=== PATIENT | female | born 1940 | race Caucasian/White ===

== ENCOUNTER → 2021-01-22 12:18 | Outpatient (CLI) | payer MEDICARE, OTHER, SELFPAY ==
--- NOTE | 2021-01-22 12:25 | DI.RAD.S_ITS ---
PROCEDURE: XR LUMBAR SPINE MIN 4V INDICATIONS: progressive LBP TECHNIQUE: 5 views of the lumbar spine were acquired, including bilateral oblique views. COMPARISON: None. FINDINGS: Bones: 5 nonrib-bearing vertebrae are present. There is grade 1 anterolisthesis of L4 on L5. Degenerative endplate changes are noted at throughout lumbar spine more prominent at L4-5 and L5-S1 levels. No vertebral body compression fractures. No suspicious bony lesions. Soft tissues: Overlying bowel gas pattern is normal. No suspicious soft tissue calcifications. Oblique images: No pars defects. No significant bony foraminal stenosis is seen. IMPRESSION: Grade 1 anterolisthesis of L4 on L5. No compression fracture. 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 No gross pars defect or significant bony foraminal stenosis. Dictated by: Joe Disla M.D. on 01/22/2021 at 13:51 Approved by: Joe Disla M.D. on 01/22/2021 at 13:52
== END ==
PROVIDERS: PCP Nurse Practitioner Family; Referring Provider Physical Medicine & Rehabilitation; Visit Provider Physical Medicine & Rehabilitation
DX: M51.26 Other intervertebral disc displacement, lumbar region (principal); M43.16 Spondylolisthesis, lumbar region; M51.36 Other intervertebral disc degeneration, lumbar region; M47.816 Spondylosis without myelopathy or radiculopathy, lumbar region
CPT/HCPCS: 72110

== ENCOUNTER → 2021-02-22 12:57 | Outpatient (CLI) | payer MEDICARE, OTHER, SELFPAY | PROVIDERS: PCP Family Medicine; Referring Provider Physical Medicine & Rehabilitation; Visit Provider Physical Medicine & Rehabilitation | DX: M51.36 Other intervertebral disc degeneration, lumbar region (principal); Z53.20 Procedure and treatment not carried out because of patient's decision for unspecified reasons ==

== ENCOUNTER → 2021-04-02 14:37 | Outpatient (CLI) | payer MEDICARE, OTHER, SELFPAY ==
--- NOTE | 2021-04-02 14:39 | DI.CT.S_ITS ---
PROCEDURE: CT LUMBAR SPINE WO CON INDICATIONS: post lami and spinal cord stim TECHNIQUE: Noncontrast 3 mm thick sections acquired from the T12 level to the sacrum. Sagittal and coronal reformats were constructed. For radiation dose reduction, the following was used: automated exposure control. COMPARISON: [facility], CR, XR LUMBAR SPINE MIN 4V, 01/22/2021, 12:35. FINDINGS: Image quality: This examination is limited by involuntary motion artifact. Bones: No acute vertebral body compression fractures. No suspicious lytic or blastic bony lesions. No pars defects. Mild levoconvex scoliotic curvature is noted. Minimal L4-5 anterolisthesis is seen. No associated pars defects are seen.. T11-T12: Bridging anterior osteophytes are seen. No significant neural foraminal or central canal narrowing can be seen. T12-L1: The disc height is well preserved. Moderate disc bulge is seen, which is eccentric to left. There is moderate left-sided and mild right-sided facet hypertrophy seen. There is moderate to severe left-sided and no significant right-sided neural foraminal narrowing seen. No central canal narrowing is seen. L1-L2: No significant loss of disc height is seen. Moderate disc bulge is seen, which is eccentric to the left. There is a left lateral recess/foraminal disc protrusion seen. Mild facet joint hypertrophy is seen. Moderate bilateral neural foraminal narrowing is seen. Mild central canal narrowing is seen. L2-L3: Mild loss of disc height is seen. At least moderate disc bulge is seen, with a central disc protrusion. Mild facet joint hypertrophy is seen. Moderate bilateral neural foraminal narrowing is seen. Moderate central canal narrowing is seen. L3-L4: Mild loss of disc height is seen. Vacuum disc phenomenon is seen at this level. At least moderate disc bulge is seen. Moderate to prominent facet joint hypertrophy is seen. There is moderate to severe bilateral neural foraminal narrowing seen. At least moderate central canal narrowing is seen. L4-L5: The disc height is relatively well preserved. Vacuum disc phenomenon is seen at this level. Moderate to prominent disc bulge is seen, with a central disc protrusion. Prominent facet hypertrophy is seen. There is at least moderate left-sided and moderate to severe right-sided neural foraminal narrowing seen. Moderate to severe central canal narrowing is seen. L5-S1: The disc height is well preserved. Partially bridging endplate osteophytes are seen at this level. At least moderate disc bulge is seen, which is eccentric to the left. Prominent facet hypertrophy is seen at this level. There is moderate to severe bilateral neural foraminal narrowing seen. Mild central canal narrowing is seen. Soft tissues: No retroperitoneal masses or hematomas. Visualized aorta is normal in caliber. Atherosclerotic calcification is noted. Cholecystectomy clips are seen. Gastroesophageal junction postoperative change is seen. The uterus appears normal for age. No adnexal masses are seen. Left-sided sacral stimulator wires can be seen, without a power pack. IMPRESSION: Multiple levels of lumbar spine degenerative change are seen, which are worst inferiorly. Left-sided sacral stimulator wires are seen, without a power pack. Incidental note is made of: Cholecystectomy Gastroesophageal junction postoperative change Dictated by: Jhonny Rabago M.D. on 04/02/2021 at 16:12 Approved by: Jhonny Rabago M.D. on 04/02/2021 at 16:18
== END ==
PROVIDERS: PCP Family Medicine; Referring Provider Physical Medicine & Rehabilitation; Visit Provider Physical Medicine & Rehabilitation
DX: M43.16 Spondylolisthesis, lumbar region (principal); M47.816 Spondylosis without myelopathy or radiculopathy, lumbar region; M47.817 Spondylosis without myelopathy or radiculopathy, lumbosacral region; Z96.82 Presence of neurostimulator; Z90.49 Acquired absence of other specified parts of digestive tract
CPT/HCPCS: 72131

== ENCOUNTER → 2021-05-05 08:27 | Outpatient (CLI) | payer MEDICARE, OTHER, SELFPAY ==
[2021-05-05 15:10] LABS: COVID19 -Nasal RAPID Negative (Negative)
== END ==
PROVIDERS: PCP Family Medicine; Visit Provider Physical Medicine & Rehabilitation
DX: Z20.822 Contact with and (suspected) exposure to COVID-19 (principal)
CPT/HCPCS: 87635; C9803

== ENCOUNTER 2021-05-07 10:34 | Outpatient (CLI) | payer MEDICARE, OTHER, SELFPAY ==
[2021-05-07] VITALS (8 sets, daily range): BP systolic 131–180; BP diastolic 60–115; PULSE 57–64; RESP 12–22; TEMP 36.3; O2SAT 96–99
--- NOTE | 2021-05-07 10:36 | DI.RAD.S_ITS ---
PROCEDURE: PAIN L/S FACET INJ/BLK 1ST CHERYL COMPARISON: None. INDICATIONS: SPONDYLOSIS FINDINGS: Needle tip positioning is appropriate for bilateral L4, L5, S1 medial branch block procedures (6 total). IMPRESSION: Normal needle tip positioning for 6 total medial branch block procedures. Dictated by: Toro Upton M.D. on 05/07/2021 at 12:13 Approved by: Toro Upton M.D. on 05/07/2021 at 12:14
[2021-05-07] MEDS: MIDAZOLAM 5 MG/5 ML VIAL IV (11:42)
[2021-05-07] MEDS: fentaNYL 100 MCG/2 ML INJ 50 MCG IV (11:42)
[2021-05-07] MEDS: BUPIVACAINE 0.5% (PF) VIAL 5 ML INJ (11:45)
[2021-05-07] MEDS: IOPAMIDOL 15 ML VIAL 3 ML INJ (11:45)
[2021-05-07] MEDS: LIDOCAINE 1% 20 ML 10 ML INJ (11:46)
--- NOTE | 2021-05-07 12:00 | PM.PROC.IR.1 ---
Date/Time/Diagnoses Date of procedure: 05/07/21 Time of procedure: 12:00 Pre-procedure diagnosis: 1. FACET ARTHROPATHY Post-procedure diagnosis: same Procedure Notes Procedure: 1. BILATERAL- L4, L5 and S1 DIAGNOSTIC MB BLOCKS with LA Anesthetic Indications: Natalia is referred by Dr. Crowell for treatment of Bilateral Axial LBP. Physician: Erlin Manrique Total Fluoroscopy time (seconds): 16 Total sedation minutes: 11 Complications: none Procedure in detail & Post-procedure care: DESCRIPTION OF PROCEDURE Fluoroscopically guided, contrast-controlled bilateral L4, L5 and S1 medial branch blocks with 0.5cc of 0.5% Marcaine. Following review of allergy and review of potential side effects and complications, including, but not necessarily limited to, infection, allergic reaction, local tissue breakdown, nerve injury, paralysis, stroke and possible , the patient indicated that the patient understood and agreed to proceed. An informed consent document was signed by the patient, witnessed by a nurse, and placed in the patient's chart. After review of previous anaesthesic history and IV conscious sedation the patient was deemed safe to proceed with today's procedure with IV conscious sedation as ASA class II designation. Safety time-out was performed to confirm patient ID, procedure to be performed and site of procedure. IV sedation was accomplished with a combination of 3mg of Versed and 50mcg of Fentanyl was administered by the RN after DO order, titrated to patient comfort during the course of the procedure while the patient remained responsive to all verbal commands In the prone position, following sterile prep and drape of the lumbar region, the right L4, L5 and S1 anatomical location of the medial branch of the dorsal ramus was identified fluoroscopically. Subsequently an anesthetic skin wheal using 1% lidocaine solution was initiated at each of the anatomical spots. Subsequently then a 22-gauge 5-inch spinal needle was atraumatically introduced and advanced under fluoroscopic guidance at each of the corresponding sites at the right L4, L5 and S1 MB. After negative aspiration, 0.2cc of Isovue 200 was injected, confirming placement without vascular or intrathecal uptake. Subsequently then 0.5cc of 0.5% Marcaine solution was injected at each of the corresponding sites at the right L4, L5 and S1 medial branch locations. The identical procedure was replicated on the left. The patient tolerated the procedure well without signs or symptoms of complications prior to transfer to the recovery area continued monitoring without incident. Post-procedure, the patient was monitored initiating provocative activities to measure the amount of relief from block of the facetogenic pain. The patient reported a VAS of 7 prior to the procedure and a post-procedure VAS of 1. It has been a pleasure to assist in the diagnostic and therapeutic care of your patient. POST OP INSTRUCTIONS The patient was provided with a Pain Log to complete over the next several hours and subsequent days prior to the patient's follow up with the ordering physician. If the patient has hydrometeorology teacher relief to the solution applied, then they may be a candidate for medial branch rhizotomy. The patient is aware, was provided, once again, with a Pain Log and will follow up with the referring physician for review and clinical correlation
== END 2021-05-07 12:19 | disposition home or self-care (01) ==
LOC: RAD 10:35
PROVIDERS: PCP Family Medicine; Referring Provider Physical Medicine & Rehabilitation; Visit Provider Physical Medicine & Rehabilitation
DX: M47.816 Spondylosis without myelopathy or radiculopathy, lumbar region (principal); M47.817 Spondylosis without myelopathy or radiculopathy, lumbosacral region
CPT/HCPCS: 64493; 64494; 99152; J2250; J3010

== ENCOUNTER → 2021-07-06 14:18 | Outpatient (CLI) | payer MEDICARE, OTHER, SELFPAY ==
[2021-07-06 16:00] LABS: COVID19 -Nasal RAPID Negative (Negative)
== END ==
PROVIDERS: PCP Family Medicine; Referring Provider Nurse Practitioner Family; Visit Provider Nurse Practitioner Family
DX: Z01.812 Encounter for preprocedural laboratory examination (principal); Z20.822 Contact with and (suspected) exposure to COVID-19
CPT/HCPCS: 87635; C9803

== ENCOUNTER 2021-07-07 07:26 | Outpatient (CLI) | payer MEDICARE, OTHER, SELFPAY ==
[2021-07-07] VITALS (11 sets, daily range): BP systolic 109–165; BP diastolic 54–76; PULSE 58–65; RESP 14–19; TEMP 36.9; O2SAT 96–99
--- NOTE | 2021-07-07 07:35 | DI.RAD.S_ITS ---
PROCEDURE: PAIN L/S MED/LAT N RFA BILAT INDICATIONS: SPONDYLOSIS COMPARISON: [facility], , PAIN L/S FACET INJ/BLK 1ST CHERYL, 05/07/2021, 11:47. FINDINGS: Fluoroscopic spot filming was performed to verify placement of spinal needles at the bilateral L4, L5, and S1 level(s), as labeled on the films. IMPRESSION: Intraprocedural examination within normal limits. Dictated by: Jhonny Rabago M.D. on 07/07/2021 at 8:40 Approved by: Jhonny Rabago M.D. on 07/07/2021 at 8:41
[2021-07-07] MEDS: fentaNYL 100 MCG/2 ML INJ 50 MCG IV (08:21)
[2021-07-07] MEDS: MIDAZOLAM 5 MG/5 ML VIAL IV (08:28)
[2021-07-07] MEDS: BUPIVACAINE 0.5% (PF) VIAL 5 ML INJ (08:30)
[2021-07-07] MEDS: LIDOCAINE 1% 20 ML INJ (08:31)
--- NOTE | 2021-07-07 09:05 | P.PCN_ITS ---
Date/Time/Diagnoses Date of procedure: 07/07/21 Pre-procedure diagnosis: 1. RECALCITRANT FACET ARTHROPATHY Post-procedure diagnosis: same Procedure Notes Procedure: 1. BILATERAL L4 AND L5 MEDIAL BRANCH RADIOFREQUENCY NEUROTOMY AND S1 DORSAL RAMUS BRANCH RADIOFREQUENCY NEUROTOMY Indications: Natalia is referred by Dr. Crowell for treatment of facet arthropathy. Physician: Erlin Manrique Total Fluoroscopy time (seconds): 16 Total sedation minutes: 39 Complications: none Procedure in detail & Post-procedure care: DESCRIPTION OF PROCEDURE Bilateral L4 and L5 medial branch radiofrequency neurotomy and bilateral S1 dorsal ramus radiofrequency neurotomy under fluoroscopy with conscious sedation. The patient is well known to this clinic having undergone previous facet injections with good but temporary relief. The patient has experienced appropriate, concordant relief with previous facet and median branch blocks but the patient's pain has been recalcitrant to further conservative measures. Therefore, based upon the patient's relief and persistent symptoms, the patient is considered an appropriate candidate for facet rhizotomy. All of the patient's questions regarding the risks versus benefits of the procedure, including, but not limited to, bleeding, infection, temporary as well as lasting nerve injury, paralysis, stroke, and , as well treatment alternatives were answered to satisfaction. After obtaining informed consent, denial of pertinent drug allergies, as well as being made aware of the potential risks of bleeding, infection, spinal cord trauma, paralysis, temporary and permanent nerve damage, seizure, stroke, and possible , the patient was brought to the fluoroscopy suite and positioned prone on the fluoroscopy table. The lumbar region was prepped with Betadine and covered with a fenestrated drape in the usual sterile fashion. Appropriate monitors applied including pulse oximeter, pulse, and blood pressure for regular monitoring throughout the procedure. After review of previous anaesthesic history and IV conscious sedation the patient was deemed safe to proceed with today's procedure with IV conscious sedation as ASA class II designation. Safety time-out was performed to confirm patient ID, procedure to be performed and site of procedure. IV sedation was accomplished with a combination of 4mg of Versed and 50mcg of Fentanyl administered by the RN after DO order, titrated to patient comfort during the course of the procedure while the patient remained responsive to all verbal commands. After local infiltration using 1% lidocaine, under fluoroscopic guidance, a 15- cm RF insulated needle with a 10-mm active tip was positioned parallel to the junction of the right sacral ala and the superior articulating process where the S1 dorsal ramus resides. Needle placement was confirmed with motor stimulation of .5v on the right which produced local stimulation without radicular component. The stimulation was then increased to 2v with, once again, only local multifidus stimulation without radicular component. The needle was then removed and the identical procedure was performed along the length of the right L5 medial branch with motor stimulation at .7v on the right. The identical procedure was once again performed along the length of the right L4 medial branch with motor stimulation of .5v on the right. The medial branches were then anesthetised with 0.5% Marcaine. This was then followed by two discreet lesions performed at 80 degrees Celsius for 90 seconds each. The identical procedure was repeated on the left. The patient tolerated the procedure well without signs or symptoms of complications prior to transfer to the recovery area continued monitoring without incident. The patient was then transferred to the recovery area where they were observed for an appropriate period of time after the injection. The patient reported a VAS score of 9 prior to the procedure and a post-procedure VAS of 0. POST OP INSTRUCTIONS The patient was provided a Pain Log to continue to record the patient's response to the target-specific procedure prior to the patient's follow-up visit with the referring physician. Additionally, specific post-injection care instructions and a contact number to our office were provided if concerns arise regarding possible complications associated with the procedure are suspected.
== END 2021-07-07 09:20 | disposition home or self-care (01) ==
LOC: RAD 07:27
PROVIDERS: PCP Family Medicine; Referring Provider Physical Medicine & Rehabilitation; Visit Provider Physical Medicine & Rehabilitation
DX: M47.816 Spondylosis without myelopathy or radiculopathy, lumbar region (principal); M47.817 Spondylosis without myelopathy or radiculopathy, lumbosacral region
CPT/HCPCS: 64635; 64636; 99152; 99153; J2250; J3010

== ENCOUNTER → 2022-02-05 11:24 | Outpatient (CLI) | payer MEDICARE, OTHER, SELFPAY ==
--- NOTE | 2022-02-05 11:28 | DI.RAD.S_ITS ---
PROCEDURE: XR KNEE RT 3V INDICATIONS: RIGHT KNEE PAIN TECHNIQUE: 3 views of the knee were acquired. COMPARISON: None. FINDINGS: Bones: No fractures or dislocations. Mild to moderate degeneration of the medial compartment with joint space loss and osteophytosis. The lateral and patellofemoral compartment joint spaces are maintained. Small superior patellar enthesophyte. Soft tissues: No joint effusion. No suspicious soft tissue calcifications. IMPRESSION: [id number] medial compartment osteoarthrosis. Dictated by: Willian Royal M.D. on 02/05/2022 at 13:44 Approved by: Willian Royal M.D. on 02/05/2022 at 13:46
== END ==
PROVIDERS: PCP Family Medicine; Referring Provider Physical Medicine & Rehabilitation; Visit Provider Physical Medicine & Rehabilitation
DX: M17.11 Unilateral primary osteoarthritis, right knee (principal); M25.561 Pain in right knee
CPT/HCPCS: 73562

== ENCOUNTER → 2022-02-15 12:36 | Outpatient (CLI) | payer MEDICARE, OTHER, SELFPAY ==
--- NOTE | 2022-02-15 13:00 | DI.CT.S_ITS ---
PROCEDURE: CT CERVICAL SPINE WO CON INDICATIONS: CERVICAL RADICULOPATHY TECHNIQUE: Noncontrast 3 mm thick sections acquired from the skull base to the T4 level. Sagittal and coronal reformats were then constructed. For radiation dose reduction, the following was used: automated exposure control, adjustment of mA and/or kV according to patient size. COMPARISON: [facility], RG, XR C-SPINE 2-3V, 10/14/2021, 12:03. FINDINGS: Image quality: This examination is somewhat limited by quantum mottle artifact. Bones: No fractures or dislocations. Visualized superior ribs are intact. There is moderate disc space narrowing at C4-C5, with moderate to severe disc space narrowing at C5-C6 and C6-C7. Posteriorly directed endplate osteophytes are seen, which are worst at C6-C7. Partially bridging anterior osteophytes are seen C4 through C7. Focal degenerative change is seen involving the C1-C2 interface anteriorly. Soft tissues: Prevertebral soft tissues are normal in thickness. No paravertebral hematomas. No apical pneumothoraces. Postoperative clips from thyroidectomy can be seen. IMPRESSION: Cervical spine degenerative changes are seen, which are worst at the C6-C7 level. Dictated by: Jhonny Rabago M.D. on 02/15/2022 at 12:21 Approved by: Jhonny Rabago M.D. on 02/15/2022 at 12:22
== END ==
PROVIDERS: PCP Family Medicine; Referring Provider Physical Medicine & Rehabilitation; Visit Provider Physical Medicine & Rehabilitation
DX: M47.22 Other spondylosis with radiculopathy, cervical region
CPT/HCPCS: 72125

== ENCOUNTER 2022-02-23 17:34 | Emergency (ER) | payer MEDICARE, OTHER, SELFPAY ==
[2022-02-23 17:41] VITALS: BP 190/91; PULSE 76; RESP 22; TEMP 37.2; O2SAT 100
--- NOTE | 2022-02-23 18:02 | ED_ITS ---
HPI - Extremity Problem <Erica Bear PA-C - Last Filed: 02/23/22 20:21> General Chief complaint: Extremity Problem,Nontraumatic Stated complaint: rt knee pain - no known injury Time Seen by Provider: 02/23/22 17:40 Source: patient Mode of arrival: Wheelchair History of Present Illness HPI Narrative: 82-year-old female with past medical history pulmonary embolism, herniated lumbar discs, spun the low listhesis, right knee DJD presents to the ED with 1 day of severe right knee pain. Patient states she has been seeing Pain Management and gotten an injection for the knee 2 weeks ago, following which the medial aspect of her knee feels progressively more painful. Patient states that she felt her right knee give out due to extreme pain earlier today, which brought her to the ED. patient denies numbness, tingling, weakness patient states she has been unable to bear weight and walk on that knee since this mo rning. Patient denies any specific trauma that led to the knee pain. Patient denies fever, chills, chest pain, shortness of breath, cough. Patient has a history of PE, for which she takes warfarin. Patient denies missing any doses recently. Related Data Home Medications Medication Instructions Recorded Confirmed amlodipine 5 mg tablet 5 mg PO DAILY 02/11/21 07/23/21 aspirin 81 mg tablet,delayed 81 mg PO DAILY 02/11/21 07/23/21 release (Adult Low Dose Aspirin) atenolol 50 mg tablet 50 mg PO DAILY 02/11/21 07/23/21 atorvastatin 40 mg tablet 40 mg PO BEDTIME 02/11/21 07/23/21 calcium carbonate 500 mg calcium 1,000 mg PO DAILY 02/11/21 07/23/21 (1,250 mg) tablet (Calcium 500) cetirizine 10 mg tablet 10 mg PO DAILY PRN 02/11/21 07/23/21 levothyroxine 125 mcg capsule 125 mcg PO DAILY 02/11/21 07/23/21 melatonin 10 mg capsule 10 mg PO BEDTIME PRN 02/11/21 07/23/21 metoclopramide HCl 10 mg tablet 10 mg PO Q6H PRN 02/11/21 07/23/21 (Reglan) omega-3 fatty acids 1,000 mg 2,000 mg PO DAILY 02/11/21 07/23/21 capsule (Fish Oil Concentrate) spironolactone 25 mg tablet 25 mg PO DAILY 02/11/21 07/23/21 (Aldactone) temazepam 30 mg capsule 30 mg PO BEDTIME PRN 02/11/21 07/23/21 vitamin B complex (B 1 tab PO DAILY 02/11/21 07/23/21 Complex-Vitamin B12) warfarin 6 mg tablet 6 mg PO 6XW 02/11/21 07/23/21 acetaminophen 500 mg tablet 1,000 mg PO Q6H PRN 07/01/21 07/23/21 (Tylenol Extra Strength) Allergies Allergy/AdvReac Type Severity Reaction Status Date / Time adhesive tape Allergy Intermediate Rash Verified 02/08/22 11:08 penicillin G Allergy Intermediate Rash Verified 02/08/22 11:08 Sulfa (Sulfonamide Allergy Intermediate Rash Verified 02/08/22 11:08 Antibiotics) Review of Systems <Erica Bera PA-C - Last Filed: 02/23/22 20:21> Review of Systems ROS Unobtainable: All systems reviewed & are unremarkable except as noted in HPI and below Constitutional Constitutional: Denies chills, Denies fatigue, Denies fever(s), Denies frequent falls, Denies lethargy and Denies weakness Eyes Eyes: Denies change in vision, Denies eye discharge, Denies irritation and Denies loss of vision ENT Ears, Nose, Mouth, and Throat: Denies change in voice, Denies dizziness, Denies neck pain, Denies sore throat and Denies throat swelling Cardiovascular Cardiovascular: Denies chest pain, Denies irregular heart rhythm, Denies lightheadedness, Denies palpitations, Denies dyspnea, Denies dyspnea on exertion and Denies orthopnea Respiratory Respiratory: Denies cough, Denies dyspnea, Denies dyspnea on exertion and Denies wheezing Gastrointestinal Gastrointestinal: Denies abdominal pain, Denies change in bowel habits, Denies diarrhea, Denies nausea and Denies vomiting Genitourinary Genitourinary: Denies hematuria, Denies flank pain, Denies urinary incontinence and Denies urinary urgency Musculoskeletal Musculoskeletal: Denies back pain, Denies muscle weakness, Denies neck pain, Denies numbness and Denies tingling Integumentary/Breasts Skin/Breast: Denies pruritus, Denies erythema, Denies rash and Denies wounds Comments: Right knee pain. Neurologic Neurologic: Denies behavioral changes, Denies confusion, Denies dizziness, Denies frequent falls, Denies loss of vision, Denies numbness, Denies tingling and Denies weakness Psychiatric Psychiatric: Denies anxiety, Denies behavioral changes, Denies confusion, Denies depression, Denies homicidal ideation and Denies suicidal ideation Endocrine Endocrine: Denies fatigue, Denies flushing and Denies palpitations Hematologic/Lymphatic Hematologic/Lymphatic: Denies easy bruising Allergic/Immunologic Allergic/Immunologic: Denies urticaria, Denies throat swelling and Denies wheezing Patient History <Erica Bear PA-C - Last Filed: 02/23/22 20:21> Medical History Cervical radiculopathy Degenerative joint disease of right hip Facet arthropathy, lumbar Herniated nucleus pulposus, lumbar History of pulmonary embolus (PE) Right knee DJD Spondylolisthesis at L4-L5 level Surgical History H/O thyroidectomy History of left knee replacement Hx laparoscopic cholecystectomy Family History Father Heart attack Social History Smoking Status: Former smoker Smoking Status: Former smoker Exam <Erica Bear PA-C - Last Filed: 02/23/22 20:21> Initial Vital Signs Initial Vital Signs: Vital Signs Temperature 98.9 F 02/23/22 17:41 Pulse Rate 76 02/23/22 17:41 Respiratory Rate 22 02/23/22 17:41 Blood Pressure 190/91 H 02/23/22 17:41 Pulse Oximetry 100 02/23/22 17:41 Const General: cooperative, healthy appearing and comfortable [facility] Head: normal to inspection Eyes General: Yes appearance normal, both eyes and all related structures Neck Neck: normal visual inspection Resp Effort & Inspection: normal respiratory effort Auscultation: clear to auscultation bilaterally Cardio Rate: regular rate Rhythm: regular rhythm Skin General: no rashes or lesions noted Neuro General: patient alert, patient awake and patient oriented x3 Extrem Other: Right knee/leg does not appear to be swollen, erythematous. Not tender to palpation. Patient endorses pain when she tries to flex the knee, bear weight or walk. Strength and sensation intact. Range of motion intact. Neurovascularly intact. Psych Appearance: grossly normal Mental Status: mental status grossly normal <Sky Mary DO - Last Filed: 02/26/22 00:50> Initial Vital Signs Initial Vital Signs: Vital Signs Temperature 98.9 F 02/23/22 17:41 Pulse Rate 76 02/23/22 17:41 Respiratory Rate 22 02/23/22 17:41 Blood Pressure 190/91 H 02/23/22 17:41 Pulse Oximetry 100 02/23/22 17:41 Course <Erica Bear PA-C - Last Filed: 02/23/22 20:21> Orders Ordered: Discontinued Medications Lidocaine (Lidocaine Patch 1 Each Adh..Patch) 1 each TOP NOW ONE Stop: 02/23/22 18:25 Last Admin: 02/23/22 18:35 Dose: 1 each Documented by: NRHOVELVET Oxycodone/Acetaminophen (Oxycodone/Acetaminophen 5/325 Tablet) 1 tab PO NOW ONE Stop: 02/23/22 20:16 Last Admin: 02/23/22 20:34 Dose: 1 tab Documented by: NRHOADS Oxycodone/Acetaminophen (Oxycodone/Apap 5/325 Prepack) 1 bottle MISC SEEINSTR ONE Stop: 02/23/22 20:20 Oxycodone/Acetaminophen (Oxycodone/Apap 5/325 Prepack) 1 bottle MISC SEEINSTR ONE Stop: 02/23/22 20:46 Last Admin: 02/23/22 20:41 Dose: 1 bottle Documented by: NRHOVELVET Vital Signs Vital signs: Vital Signs - 8 hr 02/23/22 17:41 Temperature 98.9 F Pulse Rate 76 Respiratory Rate 22 Blood Pressure 190/91 H Pulse Oximetry 100 <Sky Mary DO - Last Filed: 02/26/22 00:50> Orders Ordered: Discontinued Medications Lidocaine (Lidocaine Patch 1 Each Adh..Patch) 1 each TOP NOW ONE Stop: 02/23/22 18:25 Last Admin: 02/23/22 18:35 Dose: 1 each Documented by: NRHOVELVET Oxycodone/Acetaminophen (Oxycodone/Acetaminophen 5/325 Tablet) 1 tab PO NOW ONE Stop: 02/23/22 20:16 Last Admin: 02/23/22 20:34 Dose: 1 tab Documented by: IWONA Oxycodone/Acetaminophen (Oxycodone/Apap 5/325 Prepack) 1 bottle MISC SEEINSTR ONE Stop: 02/23/22 20:20 Oxycodone/Acetaminophen (Oxycodone/Apap 5/325 Prepack) 1 bottle MISC SEEINSTR ONE Stop: 02/23/22 20:46 Last Admin: 02/23/22 20:41 Dose: 1 bottle Documented by: IWONA Vital Signs Vital signs: Vital Signs - 8 hr 02/23/22 17:41 Temperature 98.9 F Pulse Rate 76 Respiratory Rate 22 Blood Pressure 190/91 H Pulse Oximetry 100 MDM - Extremity (Nontraumatic) <Erica Bear PA-C - Last Filed: 02/23/22 20:21> Lab Data Result diagrams: 02/23/22 19:40 02/23/22 19:40 Labs: Lab Results 02/23/22 02/23/22 02/23/22 Range/Units 19:40 19:40 19:40 WBC 8.8 (4.5-11.0) X10^3/uL RBC 5.04 (4.0-5.2) X10^6/uL Hgb 15.0 (12.0-16.0) g/dL Hct 44.5 (36-46) % MCV 88.5 (80-100) fL MCH 29.9 (26-34) PG MCHC 33.8 (30-36) % RDW 14.1 (11.6-14.8) % Plt Count 229 (150-400) X10^3/uL Neut % (Auto) 66.2 (50-75) % Lymph % (Auto) 24.4 L (25-40) % Cedar % (Auto) 7.4 (3-14) % Eos % (Auto) 1.2 L (2-4) % Baso % (Auto) 0.8 (0-2) % Neut # (Auto) 5800 (7543-3375) /uL Lymph # (Auto) 2100 (4040-7221) /uL Cedar # (Auto) 700 (0-900) /uL Eos # (Auto) 100 (0-450) /uL Baso # (Auto) 100 (0-100) /uL PT 28.2 H (10.1-12.7) SECONDS INR 2.5 H (0.9-1.3) APTT 46 H (26.4-36.2) SECONDS Sodium 142 (137-145) mmol/L Potassium 4.6 (3.4-5.1) mmol/L Chloride 106 (98-107) mmol/L Carbon Dioxide 28 (22-32) mmol/L BUN 24 H (7-17) mg/dL Creatinine 1.03 (0.52-1.04) mg/dL Estimated GFR 55 L (>60) mL/min BUN/Creatinine Ratio 23.3 H (6-22) Glucose 111 H (80-110) mg/dL Calcium 9.8 (8.4-10.2) mg/dL Total Bilirubin 0.9 (0.2-1.3) mg/dL AST 43 H (14-36) IU/L ALT 36 H (<35) IU/L Alkaline Phosphatase 103 (38-126) U/L Total Protein 8.1 (6.3-8.2) g/dL Albumin 4.6 (3.5-5.0) g/dL Globulin 3.5 (1.7-4.1) g/dL Albumin/Globulin Ratio 1.3 (1.0-2.8) Imaging Data Knee x-ray: Radiologist's Impression: PROCEDURE:? XR KNEE RT 3V ? INDICATIONS:? R Knee pain ? TECHNIQUE:? 3 views of the knee were acquired.? ? COMPARISON:? [facility], , XR KNEE RT 3V, 02/05/2022, 11:24. ? FINDINGS:? ? Bones:? No fractures or dislocations.? No suspicious bony lesions.? There is moderate to severe medial patellofemoral compartment narrowing.? Small periarticular osteophytes are present.? No erosions.? Overall appearance is stable. ? Soft tissues:? No joint effusion.? No suspicious soft tissue calcifications.? ? ? IMPRESSION:? Stable arthritic change. No visualized acute fracture or disloca tion. However, if clinical concern and/or pain persist, short interval imaging followup in 7-10 days is recommended, as occult injury cannot be definitively excluded. ? ? Dictated by: Angi Wright M.D. on 02/23/2022 at 18:39 ?? US - DVT: Radiologist's Impression: PROCEDURE:? US PERIPH VENOUS LOW EXTREM RT ? INDICATIONS:? LEG PAIN; HX DVT ? TECHNIQUE:? Real-time imaging, as well as color and pulse Doppler interrogation, were perfor med of the lower extremity deep veins from the inguinal ligament to the popliteal fossa.? ? COMPARISON:? None. ? FINDINGS:? The common femoral, femoral and popliteal veins are normally compressible, and free of intraluminal thrombus.? Color and pulse Doppler demonstrate normal phasic intraluminal flow.? There is normal augmentation response to distal compression maneuver. ? ? IMPRESSION:? No deep venous thrombosis. ? ? Dictated by: Angi Wright M.D. on 02/23/2022 at 19:38 ? ? Approved by: Angi Wright M.D. on 02/23/2022 at 19:38 ? MDM Narrative Medical decision making narrative: 82-year-old female with past medical history pulmonary embolism, herniated lumbar discs, spun the low listhesis, right knee DJD presents to the ED with 1 day of severe right knee pain. Concern for fracture/dislocation versus DVT versus musculoskeletal sprain/strain. Will obtain labs, knee x-ray, right lower extremity ultrasound. Will re-evaluate. X-ray, ultrasound without acute findings. Patient's symptoms did not improve significantly with the lidocaine patch. Will give percocet. Will discharge home with Ortho follow-up. ED return precautions discussed with patient. Patient verbalized understanding. <Sky Mary, - Last Filed: 02/26/22 00:50> Lab Data Labs: Lab Results 02/23/22 02/23/22 02/23/22 Range/Units 19:40 19:40 19:40 WBC 8.8 (4.5-11.0) X10^3/uL RBC 5.04 (4.0-5.2) X10^6/uL Hgb 15.0 (12.0-16.0) g/dL Hct 44.5 (36-46) % MCV 88.5 (80-100) fL MCH 29.9 (26-34) PG MCHC 33.8 (30-36) % RDW 14.1 (11.6-14.8) % Plt Count 229 (150-400) X10^3/uL Neut % (Auto) 66.2 (50-75) % Lymph % (Auto) 24.4 L (25-40) % Cedar % (Auto) 7.4 (3-14) % Eos % (Auto) 1.2 L (2-4) % Baso % (Auto) 0.8 (0-2) % Neut # (Auto) 5800 (9571-2497) /uL Lymph # (Auto) 2100 (8745-1127) /uL Cedar # (Auto) 700 (0-900) /uL Eos # (Auto) 100 (0-450) /uL Baso # (Auto) 100 (0-100) /uL PT 28.2 H (10.1-12.7) SECONDS INR 2.5 H (0.9-1.3) APTT 46 H (26.4-36.2) SECONDS Sodium 142 (137-145) mmol/L Potassium 4.6 (3.4-5.1) mmol/L Chloride 106 (98-107) mmol/L Carbon Dioxide 28 (22-32) mmol/L BUN 24 H (7-17) mg/dL Creatinine 1.03 (0.52-1.04) mg/dL Estimated GFR 55 L (>60) mL/min BUN/Creatinine Ratio 23.3 H (6-22) Glucose 111 H (80-110) mg/dL Calcium 9.8 (8.4-10.2) mg/dL Total Bilirubin 0.9 (0.2-1.3) mg/dL AST 43 H (14-36) IU/L ALT 36 H (<35) IU/L Alkaline Phosphatase 103 (38-126) U/L Total Protein 8.1 (6.3-8.2) g/dL Albumin 4.6 (3.5-5.0) g/dL Globulin 3.5 (1.7-4.1) g/dL Albumin/Globulin Ratio 1.3 (1.0-2.8) Discharge Plan Departure Patient Disposition: Home Clinical Impression: Knee pain Instructions: DI for Knee Pain Activity Restrictions/Additional Instructions: You were evaluated in the ED today for knee pain. Your ultrasound showed no evidence of a DVT. Your x-ray did not show any evidence of a fracture or dislocation. Your symptoms are likely due to a musculoskeletal sprain/strain or aggravation of arthritis. Please follow-up with Dr. Manrique for pain management. You can also follow-up with [facility] at [phone]. Return to the ED if your symptoms worsen, you experience numbness, tingling, weakness, fever, chills, shortness of breath. Prescriptions: No Action spironolactone [Aldactone] 25 mg tablet 25 mg PO DAILY 0RF amlodipine 5 mg tablet 5 mg PO DAILY 0RF atenolol 50 mg tablet 50 mg PO DAILY 0RF atorvastatin 40 mg tablet 40 mg PO BEDTIME 0RF cetirizine 10 mg tablet 10 mg PO DAILY PRN0RF levothyroxine 125 mcg capsule 125 mcg PO DAILY 0RF metoclopramide HCl [Reglan] 10 mg tablet 10 mg PO Q6H PRN0RF temazepam 30 mg capsule 30 mg PO BEDTIME PRN0RF warfarin 6 mg tablet 6 mg PO 6XW 0RF calcium carbonate [Calcium 500] 500 mg calcium (1,250 mg) tablet 1,000 mg PO DAILY 0RF aspirin [Adult Low Dose Aspirin] 81 mg tablet,delayed release (DR/EC) 81 mg PO DAILY 0RF omega-3 fatty acids [Fish Oil Concentrate] 1,000 mg capsule 2,000 mg PO DAILY 0RF melatonin 10 mg capsule 10 mg PO BEDTIME PRN0RF vitamin B complex [B Complex-Vitamin B12] Tablet 1 tab PO DAILY 0RF acetaminophen [Tylenol Extra Strength] 500 mg tablet 1,000 mg PO Q6H PRN0RF Referrals: Kemar Crowell DO [Primary Care Provider] - <Sky Mary DO - Last Filed: 02/26/22 00:50> [facility] Jesse Attestation: I was immediately available in the department for consultation. Documentation has been reviewed. I agree with assessment and plan.
--- NOTE | 2022-02-23 18:20 | DI.US.S_ITS ---
PROCEDURE: US PERIPH VENOUS LOW EXTREM RT INDICATIONS: LEG PAIN; HX DVT TECHNIQUE: Real-time imaging, as well as color and pulse Doppler interrogation, were performed of the lower extremity deep veins from the inguinal ligament to the popliteal fossa. COMPARISON: None. FINDINGS: The common femoral, femoral and popliteal veins are normally compressible, and free of intraluminal thrombus. Color and pulse Doppler demonstrate normal phasic intraluminal flow. There is normal augmentation response to distal compression maneuver. IMPRESSION: No deep venous thrombosis. Dictated by: Angi Wright M.D. on 02/23/2022 at 19:38 Approved by: Angi Wright M.D. on 02/23/2022 at 19:38
--- NOTE | 2022-02-23 18:21 | DI.RAD.S_ITS ---
PROCEDURE: XR KNEE RT 3V INDICATIONS: R Knee pain TECHNIQUE: 3 views of the knee were acquired. COMPARISON: [facility], , XR KNEE RT 3V, 02/05/2022, 11:24. FINDINGS: Bones: No fractures or dislocations. No suspicious bony lesions. There is moderate to severe medial patellofemoral compartment narrowing. Small periarticular osteophytes are present. No erosions. Overall appearance is stable. Soft tissues: No joint effusion. No suspicious soft tissue calcifications. IMPRESSION: Stable arthritic change. No visualized acute fracture or dislocation. However, if clinical concern and/or pain persist, short interval imaging followup in 7-10 days is recommended, as occult injury cannot be definitively excluded. Dictated by: Angi Wright M.D. on 02/23/2022 at 18:39 Approved by: Angi Wright M.D. on 02/23/2022 at 18:39
[2022-02-23] MEDS: LIDOCAINE PATCH 1 EACH ADH..PATCH TOP (18:35)
[2022-02-23 19:51] LABS: Add Manual Diff / Slide Review NO; Basophils Absolute Auto 100 /uL (0-100); Basophils Percent Auto 0.8 % (0-2); Eosinophils Absolute Auto 100 /uL (0-450); Eosinophils Percent Auto 1.2 % (2-4); Hematocrit 44.5 % (36-46); Lymphocytes Absolute Auto 2100 /uL (1100-4500); Lymphocytes Percent Auto 24.4 % (25-40); Mean Corpuscular HGB Conc 33.8 % (30-36); Mean Corpuscular Hemoglobin 29.9 PG (26-34); Mean Corpuscular Volume 88.5 fL (80-100); Monocytes Absolute Auto 700 /uL (0-900); Monocytes Percent Auto 7.4 % (3-14); Neutrophils Absolute Auto 5800 /uL (1500-7000); Neutrophils Percent Auto 66.2 % (50-75); Platelet Count 229 X10^3/uL (150-400); Red Blood Cell Count 5.04 X10^6/uL (4.0-5.2); Red Cell Distribution Width 14.1 % (11.6-14.8); White Blood Cell Count 8.8 X10^3/uL (4.5-11.0)
[2022-02-23 20:04] LABS: Alanine Aminotransferase 36 IU/L (<35); Albumin 4.6 g/dL (3.5-5.0); Albumin Globulin Ratio 1.3 (1.0-2.8); Alkaline Phosphatase 103 U/L (38-126); Aspartate Aminotransferase 43 IU/L (14-36); BUN Creatinine Ratio 23.3 (6-22); Bilirubin Total 0.9 mg/dL (0.2-1.3); Blood Urea Nitrogen 24 mg/dL (7-17); Calcium 9.8 mg/dL (8.4-10.2); Carbon Dioxide 28 mmol/L (22-32); Chloride 106 mmol/L (98-107); Estimated Glomerular Filt Rate 55 mL/min (>60); Globulin 3.5 g/dL (1.7-4.1); Glucose 111 mg/dL (80-110); HEMOLYSIS 23 (0-50); Potassium 4.6 mmol/L (3.4-5.1); Sodium 142 mmol/L (137-145); Total Protein 8.1 g/dL (6.3-8.2)
[2022-02-23 20:05] LABS: INR 2.5 (0.9-1.3); Prothrombin Time 28.2 SECONDS (10.1-12.7)
[2022-02-23 20:07] LABS: PTT Partial Thromboplastin Tim 46 SECONDS (26.4-36.2)
[2022-02-23] MEDS: OXYCODONE/ACETAMINOPHEN 5/325 TABLET 1 TAB PO (20:34)
[2022-02-23] MEDS: OXYCODONE/APAP 5/325 PREPACK 1 BOTTLE MISC (20:41)
[2022-02-23 20:58] VITALS: BP 159/74; PULSE 71; RESP 22; O2SAT 97
== END 2022-02-23 21:09 | disposition home or self-care (01) ==
PROVIDERS: Emergency Provider Student in an Organized Health Care Education/Training Program; PCP Family Medicine
DX: M25.561 Pain in right knee (principal); Z87.891 Personal history of nicotine dependence
CPT/HCPCS: 36415; 73562; 80053; 85025; 85610; 85730; 93971; 99284

== ENCOUNTER → 2022-05-13 10:37 | Outpatient (CLI) | payer MEDICARE, OTHER, SELFPAY ==
--- NOTE | 2022-05-13 | DI.NM.S_ITS ---
PROCEDURE: NM NICK PERF SPECT R&S PHARM Rest and pharmacological stress myocardial perfusion SPECT with gated imaging and ejection fraction RADIOPHARMACEUTICAL: 25.8 mCi Tc-99m tetrafosmin IV at rest and 25.8 mCi Tc-99m tetrafosmin IV at peak effect of pharmacological stress. [id number] was performed. INDICATIONS: Presence of coronary angioplasty implant and graft TECHNIQUE: Radiopharmaceutical was injected at peak stress test, and also at rest. SPECT images were obtained. SPECT myocardial perfusion images were displayed in short axis, horizontal long axis, and vertical long axis views. Gated images were reviewed using [employer] software. COMPARISON: None. CARDIAC STRESS: A pharmacologic stress test was performed under the supervision of an attending staff, using an infusion of lexiscan 0.4mg IV X1. Hemodynamic data: There is normal blood pressure and heart rate response to pharmacologic stress. Symptoms: The patient had non-diagnostic chest pain with lexiscan Aminophylline: none EKG: No diagnostic changes of ischemia; occasional PVCs during the study. FINDINGS: Raw data: There is good myocardial uptake of radiotracer. No significant motion artifacts. Bxxk-tx-cryrh ratio is 0.37 (normal is less than 0.38 for tetrafosmin tracer). Left ventricle function: Gated images demonstrate normal left ventricular wall thickening. No segmental wall motion abnormalities. No transient ischemic dilation; TID is 0.78 (normal less than 1.3). Left ventricle resting end diastolic volume is 90 mL. Left ventricle stress ejection fraction is 89%; normal range is above 45%. Myocardial perfusion: There is normal distribution of activity in the right and left ventricular myocardium. No fixed or reversible perfusion defects. IMPRESSION: Low risk, normal pharmaceutical nuclear stress test 1) No perfusion evidence of ischemia or infarction. 2) Normal left ventricular size, wall motion, and systolic function (EF post stress 89%). 3) No ST changes with lexiscan. 4) Non diagnostic chest pain during the study. 5) No prior nuclear stress test available for comparison. Dictated by: Olivia Morel MD on 05/14/2022 at 14:57 Approved by: Olivia Morel MD on 05/14/2022 at 15:00
[2022-05-13 11:39] LABS: COVID19 -Nasal RAPID Negative (Negative)
== END ==
PROVIDERS: PCP Family Medicine; Referring Provider Internal Medicine Cardiovascular Disease; Visit Provider Internal Medicine Cardiovascular Disease
DX: Z95.5 Presence of coronary angioplasty implant and graft (principal); R07.89 Other chest pain; Z20.822 Contact with and (suspected) exposure to COVID-19
CPT/HCPCS: 78452; 87635; 93017; A9502; J2785

== ENCOUNTER → 2023-01-03 14:01 | Outpatient (CLI) | payer MEDICARE, OTHER, SELFPAY ==
--- NOTE | 2023-01-03 | DI.CT.S_ITS ---
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 Sagittal and coronal reformats were constructed. For radiation dose reduction, the following was used: automated exposure control. COMPARISON: [facility], CT, CT LUMBAR SPINE WO CON, 04/02/2021, 14:45. FINDINGS: Image quality: Excellent. Bones: There no visualized fractures or dislocations. No suspicious osseous lesions. Multilevel anterior non bridging osteophytes are present. Multilevel overall moderate to severe disc space narrowing most significant at L3-4 and L5-S1 with vacuum disc at L4-5. [id number] disc bulges are present at T12-L1, L1-, L2-3, L3-4, L4-5 and L5-S1. Superimposed left lateral recess/foraminal protrusion appears relatively unchanged at L1-2, posterior central protrusion at L2-3 as well as L4-5 are also stable. There is mild spinal stenosis L1-2, moderate L2-3. There is moderate bilateral foraminal narrowing at L1-2, L2-3, moderate to severe bilateral L3-4, L5-S1, moderate left and moderate to severe right L4-5. Facet and ligamentum flavum hypertrophy. Soft tissues: No retroperitoneal masses or hematomas. Visualized aorta is normal in caliber. IMPRESSION: Multilevel spinal stenosis predominantly secondary to disc bulges as well as facet/ligamentum flavum arthropathy is stable most severe at L2-3. Multilevel foraminal narrowing most severe at L3-4 and L5-S1 secondary to facet arthropathy. Dictated by: Angi Wright M.D. on 01/04/2023 at 11:30 Approved by: Angi Wright M.D. on 01/04/2023 at 13:28
== END ==
PROVIDERS: PCP Family Medicine; Referring Provider Orthopaedic Surgery; Visit Provider Orthopaedic Surgery
DX: M99.43 Connective tissue stenosis of neural canal of lumbar region (principal); M51.36 Other intervertebral disc degeneration, lumbar region; M48.061 Spinal stenosis, lumbar region without neurogenic claudication; M48.07 Spinal stenosis, lumbosacral region; M47.816 Spondylosis without myelopathy or radiculopathy, lumbar region; M47.817 Spondylosis without myelopathy or radiculopathy, lumbosacral region
CPT/HCPCS: 72131

== ENCOUNTER → 2023-04-13 12:14 | Outpatient (CLI) | payer MEDICARE, OTHER, SELFPAY ==
--- NOTE | 2023-04-13 12:15 | DI.RAD.S_ITS ---
PROCEDURE: XR LUMBAR SPINE MIN 4V INDICATIONS: BACK PAIN TECHNIQUE: 5 views of the lumbar spine were acquired, including bilateral oblique views. COMPARISON: [facility], , XR LUMBAR SPINE MIN 4V, 01/22/2021, 12:35. FINDINGS: Bones: 5 nonrib-bearing vertebrae are present. Stable grade 1 anterolisthesis of L4 on L5. Moderate disc height loss at all levels. Diffuse facet arthrosis. Stable left-sided nerve stimulator cord without generator. Soft tissues: Overlying bowel gas pattern is normal. No suspicious soft tissue calcifications. Oblique images: No pars defects. IMPRESSION: Progressed, moderate multilevel degenerative disc disease and facet arthrosis. Dictated by: Terry Lubin M.D. on 04/13/2023 at 13:09 Approved by: Terry Lubin M.D. on 04/13/2023 at 13:11
== END ==
PROVIDERS: PCP Family Medicine; Referring Provider Physical Medicine & Rehabilitation; Visit Provider Physical Medicine & Rehabilitation
DX: M51.36 Other intervertebral disc degeneration, lumbar region (principal); M47.816 Spondylosis without myelopathy or radiculopathy, lumbar region; M43.16 Spondylolisthesis, lumbar region; M51.26 Other intervertebral disc displacement, lumbar region
CPT/HCPCS: 72110

== ENCOUNTER 2023-04-26 07:30 | Outpatient (CLI) | payer MEDICARE, OTHER, SELFPAY ==
[2023-04-26] VITALS (9 sets, daily range): BP systolic 109–145; BP diastolic 56–74; PULSE 57–61; RESP 13–20; TEMP 36.7; O2SAT 96–99
--- NOTE | 2023-04-26 07:31 | DI.RAD.S_ITS ---
PROCEDURE: PAIN L/S FACET INJ/BLK 1ST CHERYL COMPARISON: [facility], XA, PAIN L/S FACET INJ/BLK 1ST CHERYL, 05/07/2021, 11:47. INDICATIONS: SPONDYLOSIS FINDINGS: 6 intraoperative fluoroscopic images of lumbar spine shows spinal needle placed in midline at L2-3 and L3-4 levels. Small amount of contrast injection is also noted on the subsequent images. IMPRESSION: Fluoro guidance was provided intraoperatively for bilateral L2-3 and L3-4 facet joint injections performed by the ordering physician. Dictated by: Joe Disla M.D. on 04/26/2023 at 12:16 Approved by: Joe Disla M.D. on 04/26/2023 at 12:18
[2023-04-26] MEDS: MIDAZOLAM 2 MG/2 ML VIAL 4 MG IV (08:58)
[2023-04-26] MEDS: IOPAMIDOL 15 ML VIAL 3 ML INJ (09:00)
[2023-04-26] MEDS: LIDOCAINE 1% 20 ML 5 ML INJ (09:00)
[2023-04-26] MEDS: BUPIVACAINE 0.5% (PF) 10 ML VIAL 5 ML INJ (09:00)
[2023-04-26] MEDS: BETAMETHASONE 30 MG/5 ML MDV 12 MG INJ (09:00)
--- NOTE | 2023-04-26 09:12 | P.PCN_ITS ---
Date/Time/Diagnoses Date of procedure: 04/26/23 Time of procedure: 09:13 Pre-procedure diagnosis: 1. FACET ARTHROPATHY 2. AXIAL LBP 3. MULTILEVEL DDD Post-procedure diagnosis: same Procedure Notes Procedure: 1. FLUOROSCOPICALLY GUIDED CONTRAST CONTROLLED FACET JOINT INJECTIONS BILATERAL L2/3, L3/4 Indications: Natalia is referred by Dr. Crowell for treatment of Axial LBP Physician: Erlin Manrique Total Fluoroscopy time (seconds): 14 Total sedation minutes: 16 Complications: none Procedure in detail & Post-procedure care: FINDINGS Multilevel Facet Arthropathy with Clinically significant axial LBP DESCRIPTION OF PROCEDURE Fluoroscopically guided, contrast-controlled bilateral L2/3, L3/4 facet joint injections. Following review of allergy and review of potential side effects and complications, including, but not necessarily limited to, infection, allergic reaction, local tissue breakdown, stroke, temporary or permanent nerve injury, paralysis, and possible , the patient indicated that the patient understood and agreed to proceed. An informed consent document was signed by the patient, witnessed by a nurse, and placed in the patient's chart. Additionally, other treatment options including medications, modalities, and physical therapy were reviewed with the patient. After review of previous anaesthesic history and IV conscious sedation the patient was deemed safe to proceed with today's procedure with IV conscious sedation as ASA class II designation. Safety time-out was performed to confirm patient ID, procedure to be performed and site of procedure. IV sedation was accomplished with a combination of 4mg of Versed administered by the RN after DO order, titrated to patient comfort during the course of the procedure while the patient remained responsive to all verbal commands In the prone position, following sterile prep and drape of the lumbar region, the posterior aspect of the L2/3, L3/4 facet joints were identified fluoroscopically. The skin was anesthetized via a 25-gauge 1.5-inch needle with 1% lidocaine solution into the corresponding facet joints. At this point, a 22- gauge 3.5-inch spinal needle was atraumatically introduced and advanced under fluoroscopic guidance into the corresponding facet joints. Following negative aspiration, injections of approximately 0.2cc of Isovue 200 confirmed interarticular placement without vascular uptake. The identical procedure was then performed at the L2/3, L3/4 facet joints on the left. Radiological data, including multiple fluoroscopic views of the lumbosacral spine, reveal a spinal needle at the L2/3, L3/4 facet joints bilaterally. Subsequent views show flow of contrast material both superiorly and inferiorly within the joint space without vascular or intrathecal uptake. At this point, a total of 0.5cc including a mixture of 0.25cc Marcaine and 0.25cc betamethasone was injected without complication into each of the corresponding facet joints. The patient tolerated the procedure well without signs or symptoms of complications prior to transfer to the recovery area continued monitoring without incident. The patient was then transferred to the recovery area where they were observed for an appropriate period of time after the injection. The patient reported a VAS score of 7 prior to the procedure and a post-procedure VAS of 0. POST OP INSTRUCTIONS The patient was provided a Pain Log to continue to record their response to the target-specific procedure prior to follow-up visit with their referring physician. Additionally, specific post-injection care instructions and a contact number to our office were provided if concerns arise regarding possible complications associated with the procedure are suspected.
== END 2023-04-26 09:35 | disposition home or self-care (01) ==
LOC: RAD 07:31
PROVIDERS: PCP Family Medicine; Referring Provider Physical Medicine & Rehabilitation; Visit Provider Physical Medicine & Rehabilitation
DX: M47.816 Spondylosis without myelopathy or radiculopathy, lumbar region (principal); M51.36 Other intervertebral disc degeneration, lumbar region
CPT/HCPCS: 64493; 64494; 99152; J0702; J2250

== ENCOUNTER 2023-07-12 13:12 | Outpatient (CLI) | payer MEDICARE, OTHER, SELFPAY ==
[2023-07-12] VITALS (11 sets, daily range): BP systolic 108–171; BP diastolic 50–91; PULSE 60–65; RESP 14–20; TEMP 36.1; O2SAT 60–99
--- NOTE | 2023-07-12 13:13 | DI.RAD.S_ITS ---
PROCEDURE: PAIN L/S FACET INJ/BLK 1ST CHERYL COMPARISON: [facility], XA, PAIN L/S FACET INJ/BLK 1ST CHERYL, 04/26/2023, 8:59. INDICATIONS: SPONDYLOSIS FINDINGS: Access needles at the bilateral L2, L3 and L4 pedicles. Injection of small amount of contrast material confirms positioning of the needle tips and demonstrates extra thecal location. IMPRESSION: Access needles in the bilateral L2, L3 and L4 pedicles for bilateral L2, L3 and L4 medial branch block. Dictated by: Fern Wills MD, PhD on 07/12/2023 at 15:23 Approved by: Fern Wills MD, PhD on 07/12/2023 at 15:24
[2023-07-12] MEDS: MIDAZOLAM 2 MG/2 ML VIAL IV ×2 (14:28→14:35)
[2023-07-12] MEDS: BUPIVACAINE 0.5% (PF) 10 ML VIAL 5 ML INJ (14:31)
[2023-07-12] MEDS: LIDOCAINE 1% 20 ML 5 ML INJ (14:31)
[2023-07-12] MEDS: IOPAMIDOL 15 ML VIAL 3 ML INJ (14:31)
--- NOTE | 2023-07-12 14:47 | P.PCN_ITS ---
Date/Time/Diagnoses Date of procedure: 07/12/23 Time of procedure: 14:47 Pre-procedure diagnosis: FACET ARTHROPATHY Post-procedure diagnosis: same Procedure Notes Procedure: 1. BILATERAL L2, L3, L4 DIAGNOSTIC MB BLOCKS Indications: Natalia is referred by Dr. Crowell for treatment of Bilateral Axial LBP. Physician: Erlin Manrique Total Fluoroscopy time (seconds): 11 Total sedation minutes: 13 Complications: none Procedure in detail & Post-procedure care: DESCRIPTION OF PROCEDURE Fluoroscopically guided, contrast-controlled bilateral L2, L3, L4 medial branch blocks with 0.5cc of 0.5% Marcaine. Following review of allergy and review of potential side effects and complications, including, but not necessarily limited to, infection, allergic reaction, local tissue breakdown, nerve injury, paralysis, stroke and possible , the patient indicated that the patient understood and agreed to proceed. An informed consent document was signed by the patient, witnessed by a nurse, and placed in the patient's chart. After review of previous anaesthesic history and IV conscious sedation the patient was deemed safe to proceed with today's procedure with IV conscious sedation as ASA class II designation. Safety time-out was performed to confirm patient ID, procedure to be performed and site of procedure. IV sedation was accomplished with a combination of 4mg of Versed was administered by the RN afte r DO order, titrated to patient comfort during the course of the procedure while the patient remained responsive to all verbal commands In the prone position, following sterile prep and drape of the lumbar region, the right L2, L3, L4 anatomical location of the medial branch of the dorsal ramus was identified fluoroscopically. Subsequently an anesthetic skin wheal using 1% lidocaine solution was initiated at each of the anatomical spots. Subsequently then a 22-gauge 3.5-inch spinal needle was atraumatically introduced and advanced under fluoroscopic guidance at each of the corresponding sites at the right L2, L3, L4 MB. After negative aspiration, 0.2cc of Isovue 200 was injected, confirming placement without vascular or intrathecal uptake. Subsequently then 0.5cc of 0.5% Marcaine solution was injected at each of the corresponding sites at the right L2, L3, L4 medial branch locations. The identical procedure was replicated on the left. The patient tolerated the procedure well without signs or symptoms of complications. The patient tolerated the procedure well without signs or symptoms of complications prior to transfer to the recovery area continued monitoring without incident. Post-procedure, the patient was monitored initiating provocative activities to measure the amount of relief from block of the facetogenic pain. The patient reported a VAS of 7 prior to the procedure and a post-procedure VAS of 1. It has been a pleasure to assist in the diagnostic and therapeutic care of your patient. POST OP INSTRUCTIONS The patient was provided with a Pain Log to complete over the next several hours and subsequent days prior to the patient's follow up with the ordering physician. If the patient has senior net c developer relief to the solution applied, then they may be a candidate for medial branch rhizotomy. The patient is aware, was provided, once again, with a Pain Log and will follow up with the referring physician for review and clinical correlation
== END 2023-07-12 15:09 | disposition home or self-care (01) ==
LOC: RAD 13:12
PROVIDERS: PCP Family Medicine; Referring Provider Physical Medicine & Rehabilitation; Visit Provider Physical Medicine & Rehabilitation
DX: M47.816 Spondylosis without myelopathy or radiculopathy, lumbar region (principal)
CPT/HCPCS: 64493; 64494; 99152; J2250

== ENCOUNTER 2023-09-15 14:58 | Outpatient (CLI) | payer MEDICARE, OTHER, SELFPAY ==
[2023-09-15] VITALS (10 sets, daily range): BP systolic 109–178; BP diastolic 62–85; PULSE 65–72; RESP 13–22; TEMP 36.7; O2SAT 95–98
--- NOTE | 2023-09-15 14:59 | DI.RAD.S_ITS ---
PROCEDURE: PAIN L/S FACET INJ/BLK 1ST CHERYL INDICATIONS: SPONDYLOSIS COMPARISON: [facility], , PAIN L/S FACET INJ/BLK 1ST CHERYL, 07/12/2023, 14:30. FINDINGS: Fluoroscopic spot filming was performed to verify placement of spinal needles at the bilateral L2, L3 and L4 medial branch level(s), as labeled on the films. Appropriate location(s) of the needle tip(s) was confirmed by injection of iodinated contrast. IMPRESSION: Access needles placed for bilateral L2, L3 and L4 medial branch blocks. Dictated by: Fern Wills MD, PhD on 09/15/2023 at 16:23 Approved by: Fern Wills MD, PhD on 09/15/2023 at 16:23
--- NOTE | 2023-09-15 15:16 | P.PCN_ITS ---
Date/Time/Diagnoses Date of procedure: 09/15/23 Time of procedure: 16:11 Pre-procedure diagnosis: 1. FACET ARTHROPATHY Post-procedure diagnosis: same Procedure Notes Procedure: 1. BILATERAL L2, L3 AND L4 DIAGNOSTIC MB BLOCKS Indications: Natalia is referred by Dr. Crowell for treatment of Bilateral Axial LBP. Physician: Erlin Manrique Total Fluoroscopy time (seconds): 12 Total sedation minutes: 14 Complications: none Procedure in detail & Post-procedure care: DESCRIPTION OF PROCEDURE Fluoroscopically guided, contrast-controlled bilateral L2, L3 AND L4 medial branch blocks with 0.5cc of 2% Lidocaine. Following review of allergy and review of potential side effects and complications, including, but not necessarily limited to, infection, allergic reaction, local tissue breakdown, nerve injury, paralysis, stroke and possible , the patient indicated that the patient understood and agreed to proceed. An informed consent document was signed by the patient, witnessed by a nurse, and placed in the patient's chart. After review of previous anaesthesic history and IV conscious sedation the patient was deemed safe to proceed with today's procedure with IV conscious sedation as ASA class II designation. Safety time-out was performed to confirm patient ID, procedure to be performed and site of procedure. IV sedation was accomplished with a combination of 4mg of Versed was administered by the RN after DO order, titrated to patient comfort during the course of the procedure while the patient remained responsive to all verbal commands In the prone position, following sterile prep and drape of the lumbar region, the right L2, L3 AND L4 anatomical location of the medial branch of the dorsal ramus was identified fluoroscopically. Subsequently an anesthetic skin wheal using 1% lidocaine solution was initiated at each of the anatomical spots. Subsequently then a 22-gauge 3.5-inch spinal needle was atraumatically introduced and advanced under fluoroscopic guidance at each of the corresponding sites at the right L3, L4 and L5 MB. After negative aspiration, 0.2cc of Isovue 200 was injected, confirming placement without vascular or intrathecal uptake. Subsequently then 0.5cc of 2% Lidocaine solution was injected at each of the corresponding sites at the right L2, L3 and L4 medial branch locations. The identical procedure was replicated on the left. The patient tolerated the procedure well without signs or symptoms of complications. The patient tolerated the procedure well without signs or symptoms of complications prior to transfer to the recovery area continued monitoring without incident. Post-procedure, the patient was monitored initiating provocative activities to measure the amount of relief from block of the facetogenic pain. The patient reported a VAS of 7 prior to the procedure and a post-procedure VAS of 1. It has been a pleasure to assist in the diagnostic and therapeutic care of your patient. POST OP INSTRUCTIONS The patient was provided with a Pain Log to complete over the next several hours and subsequent days prior to the patient's follow up with the ordering physician. If the patient has lead simulation modeling engineer relief to the solution applied, then they may be a candidate for medial branch rhizotomy. The patient is aware, was provided, once again, with a Pain Log and will follow up with the referring physician for review and clinical correlation
--- NOTE | 2023-09-15 15:22 | PC.NURSE ---
Pt reports INR 3.1 at home, on coumadin last taken 09/14-MD aware states ok to proceed with this procedure.
[2023-09-15] MEDS: MIDAZOLAM 2 MG/2 ML VIAL IV ×2 (15:47→15:53)
[2023-09-15] MEDS: iopamidoL 15 ML VIAL 3 ML INJ (15:55)
[2023-09-15] MEDS: LIDOCAINE 1% 20 ML 5 ML INJ (15:55)
[2023-09-15] MEDS: LIDOCAINE 2% INJ MDV 20ML 5 ML INJ (15:55)
== END 2023-09-15 16:28 | disposition home or self-care (01) ==
PROVIDERS: PCP Family Medicine; Referring Provider Physical Medicine & Rehabilitation; Visit Provider Physical Medicine & Rehabilitation
DX: M47.816 Spondylosis without myelopathy or radiculopathy, lumbar region (principal)
CPT/HCPCS: 64493; 64494; 99152; J2250

== ENCOUNTER → 2023-09-20 11:09 | Outpatient (CLI) | payer MEDICARE, OTHER, SELFPAY ==
--- NOTE | 2023-09-20 | DI.CT.S_ITS ---
PROCEDURE: CT CERVICAL SPINE WO CON INDICATIONS: HX OF CERVICAL FUSION/CERVICAL STENOSIS TECHNIQUE: Noncontrast 3 mm thick sections acquired from the skull base to the T4 level. Sagittal and coronal reformats were then constructed. For radiation dose reduction, the following was used: automated exposure control, adjustment of mA and/or kV according to patient size. COMPARISON: [facility], CT, CT CERVICAL SPINE WO CON, 02/15/2022, 12:45. FINDINGS: Image quality: Excellent. Bones: Expected appearance post partial corpectomy of C6, and anterior plate and screw fixation bridging the vertebral bodies of C5 and C7, with prosthesis bridging C6 period there is also ACDF at C4-C5 which has occurred since the previous study as well. There is lucency surrounding the superior and inferior tines at C4-C5, possibly indicating mechanical loosening. No fractures or dislocations. Visualized superior ribs are intact. Prominent bilateral facet arthropathy at C2-C3. Posterior osteophyte at C7, eccentric to the right, with a degree of canal stenosis. Multilevel right-sided bony foraminal narrowing, at C4-C5, C5-C6, C7-T1, and the upper thoracic region. Stenosis is severe at C7-T1 and T1-T2. Left-sided bony foraminal narrowing at C4-C5 and C5-C6. Soft tissues: Prevertebral soft tissues are normal in thickness. No paravertebral hematomas. No apical pneumothoraces. IMPRESSION: 1. Surgical hardware bridging C5 through C7 is intact with no hardware failure or loosening. 2. There is also ACDF at C4-C5. The superior and inferior salvador contain lucency surrounding them so, suggesting possible mechanical loosening. 3. Cervical spondylitic change. Findings include central canal stenosis at C7 and multilevel bony foraminal narrowing. Dictated by: Cristian Buchanan M.D. on 09/20/2023 at 12:51 Approved by: Cristian Buchanan M.D. on 09/20/2023 at 13:01
== END ==
PROVIDERS: PCP Family Medicine; Referring Provider Orthopaedic Surgery; Visit Provider Orthopaedic Surgery
DX: M48.02 Spinal stenosis, cervical region (principal); M47.812 Spondylosis without myelopathy or radiculopathy, cervical region; Z98.1 Arthrodesis status
CPT/HCPCS: 72125

== ENCOUNTER 2023-12-08 07:27 | Outpatient (CLI) | payer MEDICARE, OTHER, SELFPAY ==
[2023-12-08] VITALS (13 sets, daily range): BP systolic 121–151; BP diastolic 58–82; PULSE 61–69; RESP 12–20; TEMP 36; O2SAT 94–98
--- NOTE | 2023-12-08 08:00 | DI.RAD.S_ITS ---
PROCEDURE: PAIN L/S MED/LAT N RFA BILAT INDICATIONS: facet arthropathy COMPARISON: [facility], , PAIN L/S MED/LAT N RFA BILAT, 07/07/2021, 8:30. FINDINGS: Fluoroscopic spot filming was performed to verify placement of spinal needles at the bilateral L2, L3 and L4 level(s), as labeled on the films. Appropriate location(s) of the needle tip(s) was confirmed by injection of iodinated contrast. IMPRESSION: Intra procedural examination demonstrating appropriate positions of the needles. Dictated by: Poncho Fregoso M.D. on 12/08/2023 at 10:38 Approved by: Poncho Fregoso M.D. on 12/08/2023 at 10:38
[2023-12-08] MEDS: MIDAZOLAM 2 MG/2 ML VIAL IV (08:15)
[2023-12-08] MEDS: fentaNYL 100 MCG/2 ML INJ 25 MCG IV ×2 (08:15→08:39)
[2023-12-08] MEDS: LIDOCAINE 1% 20 ML 5 ML INJ (08:24)
[2023-12-08] MEDS: BUPIVACAINE 0.5% (PF) 10 ML VIAL 5 ML INJ (08:24)
--- NOTE | 2023-12-08 09:04 | P.PCN_ITS ---
Date/Time/Diagnoses Date of procedure: 12/08/23 Time of procedure: 09:04 Pre-procedure diagnosis: 1. RECALCITRANT FACET ARTHROPATHY Post-procedure diagnosis: same Procedure Notes Procedure: 1. BILATERAL L2, L3, L4 MEDIAL BRANCH RADIOFREQUENCY NEUROTOMY Indications: Natalia is referred by Dr. Crowell for treatment of facet arthropathy. Physician: Erlin Manrique Total Fluoroscopy time (seconds): 17 Total sedation minutes: 44 Complications: none Procedure in detail & Post-procedure care: DESCRIPTION OF PROCEDURE Bilateral L2, L3, L4 medial branch radiofrequency neurotomy The patient is well known to this clinic having undergone previous facet injections with good but temporary relief. The patient has experienced appropriate, concordant relief with previous facet and median branch blocks but the patient's pain has been recalcitrant to further conservative measures. Therefore, based upon the patient's relief and persistent symptoms, the patient is considered an appropriate candidate for facet rhizotomy. All of the patient's questions regarding the risks versus benefits of the procedure, including, but not limited to, bleeding, infection, temporary as well as lasting nerve injury, paralysis, stroke, and , as well treatment alternatives were answered to satisfaction. After obtaining informed consent, denial of pertinent drug allergies, as well as being made aware of the potential risks of bleeding, infection, spinal cord trauma, paralysis, temporary and permanent nerve damage, seizure, stroke, and possible , the patient was brought to the fluoroscopy suite and positioned prone on the fluoroscopy table. After review of previous anaesthesic history and IV conscious sedation the patient was deemed safe to proceed with today's procedure with IV conscious sedation as ASA class II designation. Safety time-out was performed to confirm patient ID, procedure to be performed and site of procedure. IV sedation was accomplished with a combination of 2mg of Versed and 50mcg of Fentanyl administered by the RN after DO order, titrated to patient comfort during the course of the procedure while the patient remained responsive to all verbal commands. The lumbar region was prepped in usual sterile fashion and covered with a fenestrated drape in the usual sterile fashion. Appropriate monitors applied including pulse oximeter, pulse, and blood pressure for regular monitoring throughout the procedure. After local infiltration using 1% lidocaine, under fluoroscopic guidance, a 10- cm RF insulated needle with a 10-mm active tip was positioned parallel to the junction of the right the superior articulating process where the L4 medial branch resides. Needle placement was confirmed with motor stimulation of .5v on the right which produced local stimulation without radicular component. The stimulation was then increased to 2v with, once again, only local multifidus stimulation without radicular component. The needle was then removed and the identical procedure was performed along the length of the right L3 medial branch with motor stimulation at .7v on the right. The identical procedure was once again performed along the length of the right L2 and medial branch with motor stimulation of .5v on the right. The medial branches were then anesthetised with 0.5% marcaine. This was then followed by two discreet lesions performed at 80 degrees Celsius for 90 seconds each. The identical procedures were repeated on the left. The patient tolerated the procedure well without signs or symptoms of complications prior to transfer to the recovery area continued monitoring without incident. The patient was then transferred to the recovery area where they were observed for an appropriate period of time after the injection. The patient reported a VAS score of 7 prior to the procedure and a post-procedure VAS of 1. POST OP INSTRUCTIONS The patient was provided a Pain Log to continue to record the patient's response to the target-specific procedure prior to the patient's follow-up visit with the referring physician. Additionally, specific post-injection care instructions and a contact number to our office were provided if concerns arise regarding possible complications associated with the procedure are suspected.
== END 2023-12-08 09:13 | disposition home or self-care (01) ==
LOC: RAD 07:28
PROVIDERS: PCP Family Medicine; Referring Provider Physical Medicine & Rehabilitation; Visit Provider Physical Medicine & Rehabilitation
DX: M47.816 Spondylosis without myelopathy or radiculopathy, lumbar region (principal)
CPT/HCPCS: 64635; 64636; 99152; 99153; J2250; J3010

== ENCOUNTER 2024-01-03 08:31 | Observation (INO) | payer MEDICARE, OTHER, SELFPAY ==
[2024-01-03] VITALS (19 sets, daily range): BP systolic 124–224; BP diastolic 54–104; PULSE 61–75; RESP 16–32; TEMP 35.9–36.7; O2SAT 93–100; BMI 37.4
--- NOTE | 2024-01-03 | DI.ECHO.S_ITS ---
[facility]---------+ [facility] +---------+ : : [address] : [address] : : : : [id number] : : : : Phone: [phone]---------+ Echocardiogram Report + + :Name: JOSE LUCERO Study Date: 01/03/2024 Height: 65 in : :[facility] ReadingLocation: Weight: 225 lb: : Gender: Female BSA: 2.1 m2 : :: 1940 Age: 83 yrs : :Reason For Study: CHEST PAIN : :Ordering Physician: SIMONE, : :PHUONG Drew Performed By: Radha Stoddard : :Referring: PHUONG NICHOLS : + + Interpretation Summary The ejection fraction is estimated to be 60-65%. There is no significant valvular heart disease. Procedure: A two-dimensional transthoracic echocardiogram with color flow and Doppler was performed. The study quality was technically adequate. Comparison is made with the echocardiogram of 06/05/2021. The patient was in sinus rhythm with heart rates between 61-75 bpm during the exam. Left Ventricle: The left ventricle is normal in size and wall thickness. The ejection fraction is estimated to be 60-65%. Left ventricular wall motion is normal. Right Ventricle: The right ventricle is normal in size and function. Atria: The left atrial size is normal. Right atrial size is normal. There is no Doppler evidence for an interatrial shunt. Mitral Valve: The mitral valve is normal in structure and function. There is trace mitral regurgitation. Aortic Valve: The aortic valve is trileaflet. The aortic valve opens well. There is no aortic valve stenosis. No aortic regurgitation is present. Tricuspid Valve: The tricuspid valve is normal in structure and function. There is trace tricuspid regurgitation. Pulmonic Valve: The pulmonic valve is not well visualized. There is no pulmonic valvular regurgitation. Great Vessels: The aortic root is normal size. The dimensions of the ascending aorta are normal. The IVC is of normal diameter and collapses greater than 50% with a sniff. This suggests a low right atrial pressure of 3 mm Hg. Pericardium/ Pleura There is no pericardial effusion. There is no pleural effusion. MMode/2D Measurements & Calculations LVIDd: 4.5 cm LVOT diam: 2.2 cm LVIDs: 2.7 cm Ao root diam: 2.9 cm FS: 40.3 % asc Aorta Diam: 3.3 cm IVSd: 0.88 cm Ao Arch Diam (Prox Trans): 2.8 cm LVPWd: 0.84 cm LV roman. diameter/BSA (cm/m^2): 2.1 LV sys. diameter/BSA (cm/m^2): 1.3 LA A2 area: 19.6 cm2 RA long axis: 5.0 cm LA A4 area: 16.2 cm2 RA area: 14.4 cm2 LA length (vol): 5.2 cm RA vol: 35.4 ml LA vol: 52.1 ml RA : 17.0 ml/m2 LA vol index: 25.0 ml/m2 IVC diam: 1.6 cm RVD1 (basal): 3.5 cm RVD2 (mid): 3.3 cm TAPSE: 1.8 cm Doppler Measurements & Calculations Ao V2 max: 195.8 cm/sec LVOT Max Humberto: 117.2 cm/sec Ao V2 mean: 136.1 cm/sec LV V1 max P.5 mmHg Ao max P.3 mmHg LV V1 VTI: 26.9 cm Ao mean P.4 mmHg DELORIS(I,D): 2.3 cm2 Ao V2 VTI: 44.0 cm DELORIS(V,D): 2.3 cm2 sev ratio: 0.61 DELORIS indexed to BSA (cm^2/m^2): 1.1 MV E max humberto: 57.2 cm/sec TR max humberto: 245.5 cm/sec MV A max humberto: 81.4 cm/sec TR max P.1 mmHg MV E/A: 0.70 PA V2 max: 101.7 cm/sec Med Peak E' Humberto: 5.6 cm/sec PA V2 mean: 78.5 cm/sec E/E' med: 10.3 PA mean P.6 mmHg Lat Peak E' Humberto: 7.1 cm/sec PA pr(Accel): 32.8 mmHg E/E' lat: 8.0 E/e' average: 9.1 MV dec time: 0.23 sec SV(LVOT): 103.0 ml Reading Physician:12:59 PM
--- NOTE | 2024-01-03 | DI.NM.S_ITS ---
PROCEDURE: NM NICK PERF SPECT R&S PHARM Rest and pharmacological stress myocardial perfusion SPECT with gated imaging and ejection fraction RADIOPHARMACEUTICAL: 27.2 mCi Tc-99m tetrafosmin IV at rest and 25.5 mCi Tc-99m tetrafosmin IV at peak effect of pharmacological stress. [id number] was performed. INDICATIONS: Chest pain TECHNIQUE: Radiopharmaceutical was injected at peak stress test, and also at rest. SPECT images were obtained. SPECT myocardial perfusion images were displayed in short axis, horizontal long axis, and vertical long axis views. Gated images were reviewed using Hachimen[employer] software. COMPARISON: None. CARDIAC STRESS: A pharmacologic stress test was performed under the supervision of an attending staff, using an infusion of regadenoson 0.4 mg IV. Hemodynamic data: There is normal blood pressure and heart rate response to pharmacologic stress. Symptoms: The patient denied anginal chest pain. EKG: No diagnostic changes of ischemia; rare PVCs. FINDINGS: Raw data: There is good myocardial uptake of radiotracer. No significant motion artifacts. Ioxs-lh-mytbe ratio is 0.25 (normal is less than 0.38 for tetrafosmin tracer). Left ventricle function: Gated images demonstrate normal left ventricular wall thickening. No segmental wall motion abnormalities. No transient ischemic dilation; TID is 1.0 (normal less than 1.3). Left ventricle resting end diastolic volume is 95 mL. Left ventricle stress ejection fraction is >75%; normal range is above 45%. Myocardial perfusion: There is a small sized, mild intensity fixed distal lateral wall defect. No reversible perfusion defects. IMPRESSION: Low risk study. No reversible perfusion defects. The small size, mild intensity fixed distal lateral wall defects occurring in the setting of normal wall motion and likely due to attenuation artifact. Normal LV size with hyperdynamic function. Dictated by: Shelley Parham D.O. on 01/04/2024 at 16:48 Approved by: Shelley Parham D.O. on 01/04/2024 at 16:51
--- NOTE | 2024-01-03 08:40 | ED.GENADULT ---
HPI - General Adult General Chief complaint: Chest Pain Stated complaint: chest pain Time Seen by Provider: 01/03/24 08:40 History of Present Illness HPI narrative: 83-year-old female with history of cervical spine fusion, CAD status post stent in 2008 per patient, pulmonary embolism on warfarin presents with chest pain. She states she was feeling well yesterday but was woken around 3:00 a.m. this morning with sharp left-sided chest pain that is nonradiating, that is worse with deep breathing. No shortness of breath. No fevers or chills. No back or flank or abdominal pain. No focal numbness or weakness. Pain is worse with moving, though not clearly worse with exertion. No recent leg swelling or leg pain. She is consistent with her warfarin, that she is on for her history of pulmonary embolism. She follows with scheduled cardiology. Daughter at bedside corroborating history. No other new concerns. Related Data Home Medications Medication Instructions Recorded Confirmed amlodipine 5 mg tablet 5 mg PO DAILY 02/11/21 11/21/23 aspirin 81 mg tablet,delayed 81 mg PO DAILY 02/11/21 11/21/23 release (Adult Low Dose Aspirin) atenolol 50 mg tablet 50 mg PO DAILY 02/11/21 11/21/23 calcium carbonate 500 mg calcium 1,000 mg PO DAILY 02/11/21 11/21/23 (1,250 mg) tablet (Calcium 500) cetirizine 10 mg tablet 10 mg PO DAILY PRN 02/11/21 11/21/23 metoclopramide HCl 10 mg tablet 10 mg PO Q6H PRN 02/11/21 11/21/23 (Reglan) omega-3 fatty acids 1,000 mg 2,000 mg PO DAILY 02/11/21 11/21/23 capsule (Fish Oil Concentrate) spironolactone 25 mg tablet 25 mg PO DAILY 02/11/21 11/21/23 (Aldactone) temazepam 30 mg capsule 30 mg PO BEDTIME PRN 02/11/21 11/21/23 vitamin B complex (B 1 tab PO DAILY 02/11/21 11/21/23 Complex-Vitamin B12 tablet) warfarin 6 mg tablet 6 mg PO 6XW 02/11/21 11/21/23 acetaminophen 500 mg tablet 1,000 mg PO Q6H PRN 07/01/21 11/21/23 (Tylenol Extra Strength) atorvastatin 80 mg tablet 80 mg PO BEDTIME 04/20/23 11/21/23 levothyroxine 125 mcg tablet 125 mcg PO DAILY 04/20/23 11/21/23 ipratropium bromide 42 mcg (0.06 2 spray intranasal 3XD 11/21/23 11/21/23 %) nasal spray Previous Rx's Medication Instructions Recorded tramadol 50 mg tablet 50 mg PO TID PRN pain #30 tabs 11/21/23 Allergies Allergy/AdvReac Type Severity Reaction Status Date / Time adhesive tape Allergy Intermediate Rash Verified 11/21/23 11:41 penicillin G Allergy Intermediate Rash Verified 11/21/23 11:41 Sulfa (Sulfonamide Allergy Intermediate Rash Verified 11/21/23 11:41 Antibiotics) Review of Systems Review of Systems Narrative: Constitutional: no fever, no chills Eyes: no visual disturbance, no discharge Ears, Nose, Mouth, Throat: no rhinorrhea, no sore throat Cardiovascular: + chest pain, no palpitations Respiratory: no cough, no shortness of breath Gastrointestinal: no abdominal pain, no vomiting, no diarrhea Genitourinary: no dysuria, no hematuria Musculoskeletal: no back pain, no neck stiffness Skin: no rash, no wound Neurological: no focal weakness, no focal numbness Patient History Medical History Chronic anticoagulation Morbid obesity due to excess calories Cervical radiculopathy 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 Facet arthropathy, lumbar History of pulmonary embolus (PE) Spondylolisthesis at L4-L5 level Herniated nucleus pulposus, lumbar Surgical History S/P cervical spinal fusion Hx laparoscopic cholecystectomy History of left knee replacement H/O thyroidectomy Family History Father Heart attack Social History Smoking Status: Former smoker Smoking Status: Former smoker Exam Narrative Exam Narrative: Const: no acute distress, non toxic appearing; calm, conversant, pleasant Eyes: PERRLA, EOMI ENT: mucous membranes moist Neck: supple, non-tender Resp: no respiratory distress, clear to auscultation bilaterally Card: regular rate and rhythm, +mild systolic murmur; +mild chest wall tenderness that does not fully reproduce symptoms Abd: non tender diffusely, no rigidity or rebound or guarding Back: no T or L spine tenderness, no CVA tenderness bilaterally Extrem: no deformities, no swelling bilateral lower extremities, 2+ distal pulses all extremities 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 I am obtaining EKG, CBC, CMP, D-dimer, troponin, chest x-ray. I am giving full aspirin, nitroglycerin sublingual tablet as trial to see if this improves her pain, and will closely reassess. Patient currently fully neurovascularly intact, hemodynamically stable. We will closely reassess elevated BP for response to NTG. She has HTN and takes anti-hypertensives at home, stating she is consistent with this. BP and pain substantially improved with NTG. Ordering paste. EKG NSR without acute ischemia or immediately concerning interval prolongation on my review. Labs: CBC with no leukocytosis, anemia, or thrombocytopenia. Chemistry with creatinine similar to prior, no immediately concerning electrolyte derangements. INR 2.2, appropriate in setting of warfarin use. Troponin reassuring. Radiology review of imaging below, which I agree with on my independent review: CXR: FINDINGS: Surgical changes and devices: Low anterior cervical fusion hardware. Lungs and pleura: Lungs are clear. No pleural effusions or pneumothorax. Mediastinum: Mediastinal contours appear normal. Heart size is normal. Bones and chest wall: No suspicious bony lesions. Overlying soft tissues appear unremarkable. IMPRESSION: No acute cardiopulmonary abnormality is seen. Dictated by: Raisa Ignacio M.D. on 01/03/2024 at 9:[address] Parham at 9:35AM who recommends admission here. We are consulting hospitalist. Patient is still having some pain though BP in 150s. Nitro paste ordered. I spoke with Dr. Barillas at 9:45AM on phone; he reviewed case with me and kindly accepts. Note patient had recurring chest pain in ER, though remains otherwise stable. Pain is not severe; no other new symptoms. Repeat EKG during this shows NSR without acute ischemia or immediately concerning interval prolongation on my review. Morphology overall similar to prior today. Admitting in stable condition. Orders Ordered: ED Orders 01/03/24 08:41 XR chest 1V Stat EKG-12 Lead Stat 01/03/24 08:50 CBC Auto Diff [Complete Blood Count AUTO DIFF] Stat CMP [Comprehensive Metabolic Panel] Stat D Dimer Stat Prothrombin Time INR Stat Troponin I Stat 01/03/24 10:00 Trop I [Troponin I] Stat Discontinued Medications Aspirin (Aspirin 81 Mg Chew Tab) 324 mg PO NOW ONE Stop: 01/03/24 08:49 Last Admin: 01/03/24 09:21 Dose: 243 mg Documented By: JEANNINE Nitroglycerin (Nitroglycerin 0.4 Mg Sl Tab) 0.4 mg SL NOW ONE Stop: 01/03/24 08:42 Last Admin: 01/03/24 08:48 Dose: 0.4 mg Documented By: JEANNINE Nitroglycerin (Nitroglycerin Oint 1 Inch/Gm Oint...G.) 1 inch TOP NOW ONE Stop: 01/03/24 09:35 Last Admin: 01/03/24 10:15 Dose: 1 inch Documented By: IRVING Vital Signs Vital signs: Vital Signs - 8 hr 01/03/24 08:39 01/03/24 08:40 01/03/24 08:41 Temperature Pulse Rate 75 73 70 Respiratory Rate 23 29 H 20 Blood Pressure 224/104 H Pulse Oximetry 97 97 98 Oxygen Delivery Method Room Air 01/03/24 08:48 01/03/24 08:50 01/03/24 08:50 Temperature 98.0 F Pulse Rate 71 Respiratory Rate 26 H Blood Pressure 194/103 H Pulse Oximetry 97 Oxygen Delivery Method 01/03/24 08:56 01/03/24 08:56 01/03/24 09:00 Temperature Pulse Rate 74 68 Respiratory Rate 31 H 22 Blood Pressure 181/83 H Pulse Oximetry 93 95 Oxygen Delivery Method 01/03/24 09:00 01/03/24 09:05 01/03/24 09:05 Temperature Pulse Rate 63 Respiratory Rate 20 Blood Pressure 141/61 H 148/67 H Pulse Oximetry 93 Oxygen Delivery Method 01/03/24 09:30 01/03/24 09:30 Temperature Pulse Rate 61 Respiratory Rate 17 Blood Pressure 159/77 H Pulse Oximetry 97 Oxygen Delivery Method Medical Decision Making Lab Data 01/03/24 08:50 01/03/24 08:50 Labs: Lab Results 01/03/24 Range/Units 08:50 WBC 8.6 (4.5-11.0) X10^3/uL RBC 4.68 (4.0-5.2) X10^6/uL Hgb 14.0 (12.0-16.0) g/dL Hct 41.3 (36-46) % MCV 88.2 (80-100) fL MCH 30.0 (26-34) PG MCHC 34.0 (30-36) % RDW 15.1 H (11.6-14.8) % Plt Count 220 (150-400) X10^3/uL Neut % (Auto) 53.7 (50-75) % Lymph % (Auto) 34.4 (25-40) % [place] % (Auto) 8.5 (3-14) % Eos % (Auto) 2.6 (2-4) % Baso % (Auto) 0.8 (0-2) % Neut # (Auto) 4600 (8388-8443) /uL Lymph # (Auto) 2900 (5952-1213) /uL [place] # (Auto) 700 (0-900) /uL Eos # (Auto) 200 (0-450) /uL Baso # (Auto) 100 (0-100) /uL PT 26.0 H (9.4-12.5) SECONDS INR 2.2 H (0.9-1.3) D-Dimer 646 H (<500) ng/ml Sodium 141 (137-145) mmol/L Potassium 3.8 (3.4-5.1) mmol/L Chloride 109 H (98-107) mmol/L Carbon Dioxide 26 (22-32) mmol/L BUN 22 H (7-17) mg/dL Creatinine 1.00 (0.52-1.04) mg/dL Estimated GFR 56 L (>60) mL/min BUN/Creatinine Ratio 22.0 (6-22) Glucose 113 H (80-110) mg/dL Calcium 9.8 (8.4-10.2) mg/dL Total Bilirubin 1.0 (0.2-1.3) mg/dL AST 34 (14-36) IU/L ALT 33 (<35) IU/L Alkaline Phosphatase 85 (38-126) U/L Troponin I < 0.012 (0.01-0.034) ng/mL Total Protein 7.0 (6.3-8.2) g/dL Albumin 3.9 (3.5-5.0) g/dL Globulin 3.1 (1.7-4.1) g/dL Albumin/Globulin Ratio 1.3 (1.0-2.8) Discharge Plan Departure Patient Disposition: Admitted as Observation Clinical Impression: Chest pain Admit Date/Time: 01/03/24 09:50 Admit Provider: Marko Barillas
--- NOTE | 2024-01-03 08:41 | DI.RAD.S_ITS ---
PROCEDURE: XR CHEST 1V INDICATIONS: CP TECHNIQUE: One view of the chest was acquired. COMPARISON: None. FINDINGS: Surgical changes and devices: Low anterior cervical fusion hardware. Lungs and pleura: Lungs are clear. No pleural effusions or pneumothorax. Mediastinum: Mediastinal contours appear normal. Heart size is normal. Bones and chest wall: No suspicious bony lesions. Overlying soft tissues appear unremarkable. IMPRESSION: No acute cardiopulmonary abnormality is seen. Dictated by: Raisa Ignacio M.D. on 01/03/2024 at 9:16 Approved by: Raisa Ignacio M.D. on 01/03/2024 at 9:17
[2024-01-03] MEDS: NITROGLYCERIN 0.4 MG SL TAB SL (08:48)
[2024-01-03 09:02] LABS: Add Manual Diff / Slide Review NO; Basophils Absolute Auto 100 /uL (0-100); Basophils Percent Auto 0.8 % (0-2); Eosinophils Absolute Auto 200 /uL (0-450); Eosinophils Percent Auto 2.6 % (2-4); Hematocrit 41.3 % (36-46); Lymphocytes Absolute Auto 2900 /uL (1100-4500); Lymphocytes Percent Auto 34.4 % (25-40); Mean Corpuscular Volume 88.2 fL (80-100); Monocytes Absolute Auto 700 /uL (0-900); Monocytes Percent Auto 8.5 % (3-14); Neutrophils Absolute Auto 4600 /uL (1500-7000); Neutrophils Percent Auto 53.7 % (50-75); Platelet Count 220 X10^3/uL (150-400); Red Blood Cell Count 4.68 X10^6/uL (4.0-5.2); Red Cell Distribution Width 15.1 % (11.6-14.8); White Blood Cell Count 8.6 X10^3/uL (4.5-11.0)
--- NOTE | 2024-01-03 09:14 | PC.NURSE ---
Pt reports after first dose of nitro left sided chest pain has subsided. BP WNL.
[2024-01-03 09:16] LABS: Alanine Aminotransferase 33 IU/L (<35); Albumin 3.9 g/dL (3.5-5.0); Alkaline Phosphatase 85 U/L (38-126); Aspartate Aminotransferase 34 IU/L (14-36); Blood Urea Nitrogen 22 mg/dL (7-17); Calcium 9.8 mg/dL (8.4-10.2); Carbon Dioxide 26 mmol/L (22-32); Chloride 109 mmol/L (98-107); Estimated Glomerular Filt Rate 56 mL/min (>60); Glucose 113 mg/dL (80-110); HEMOLYSIS < 15 (0-50); Potassium 3.8 mmol/L (3.4-5.1); Sodium 141 mmol/L (137-145)
[2024-01-03 09:17] LABS: Albumin Globulin Ratio 1.3 (1.0-2.8); Globulin 3.1 g/dL (1.7-4.1)
[2024-01-03] MEDS: ASPIRIN 81 MG CHEW TAB 324 MG PO (09:21)
[2024-01-03 09:24] LABS: INR 2.2 (0.9-1.3)
[2024-01-03 09:28] LABS: Troponin I < 0.012 ng/mL (0.01-0.034)
[2024-01-03 09:34] LABS: D Dimer 646 ng/ml (<500)
[2024-01-03] MEDS: NITROGLYCERIN OINT 1 INCH/GM OINT...G. TOP (10:15)
--- NOTE | 2024-01-03 10:20 | PC.NURSE ---
Pt stating chest pain is increasing from a 4 to a 6 upon inspiration. Pt states she was wondering why a CT scan was not done given history of blood clot; MD Nargis barrera (per [facility]). Pt states she tolerates the nitro well. Pt stable. vital signs monitored.
--- NOTE | 2024-01-03 10:20 | PC.NURSE ---
Prior to pt going upstairs pt stat
[2024-01-03 10:31] LABS: Troponin I < 0.012 ng/mL (0.01-0.034)
--- NOTE | 2024-01-03 11:19 | DI.CT.S_ITS ---
PROCEDURE: CT ANGIO CHEST PE PROTOCOL INDICATIONS: CP, r/o PE or dissection TECHNIQUE: After the administration of intravenous contrast, 2 mm thick sections acquired from the pulmonary apices to the posterior costophrenic angles. 3-dimensional maximum intensity projection (MIP) coronal and sagittal reformats were then acquired through the thorax. For radiation dose reduction, the following was used: automated exposure control, adjustment of mA and/or kV according to patient size. COMPARISON: None. FINDINGS: Image quality: Diagnostic Lungs and pleura: Bibasilar atelectasis/scarring. No dense airspace disease. No pleural effusions. Tiny pulmonary nodules are present, for example 5/156 on the left, which do not require dedicated follow-up imaging unless the patient is considered high risk. Mediastinum, heart, and esophagus: No acute pulmonary embolism. Small hiatal hernia and gastroesophageal junction postsurgical changes. Cardiomegaly. There are dense coronary calcifications. There also annular calcifications of the heart. No pathologic lymph nodes by size criteria. No large dissection on these pulmonary arterial phase images. Chest wall and thyroid: Unremarkable Upper abdomen: No gross abnormality on these arterial phase images. Possible liver cyst at the dome. 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 Colonic diverticula. Bones: There are degenerative changes. IMPRESSION: No acute pulmonary embolism. No large dissection on these pulmonary arterial phase images. Cardiomegaly and significant coronary calcifications. Other findings above. Dictated by: Adan Moore M.D. on 01/03/2024 at 12:02 Approved by: Adan Moore M.D. on 01/03/2024 at 12:07
--- NOTE | 2024-01-03 11:26 | PM.HP.1 ---
History of Present Illness History of Present Illness Date Patient Seen: 01/03/24 Chief complaint: chest pain Narrative: Natalia Amaya is an 83yo F with PMH of DVT/PE on warfarin, hypothyroidism, HTN, HLD, obesity, and cervical fusion who presents with CP. Patient woke up with L-sided chest pain which radiated to jaw. The pain improved with NG in the ED. EKG without ST changes and troponins normal x2. Admitted for chest pain workup with stress and echo. 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 Facet arthropathy, lumbar History of pulmonary embolus (PE) Spondylolisthesis at L4-L5 level Herniated nucleus pulposus, lumbar Surgical History S/P cervical spinal fusion Hx laparoscopic cholecystectomy History of left knee replacement H/O thyroidectomy Family History Father Heart attack Social History household members: children Smoking Status: Former smoker Meds Home Medications and Allergies Home Medications Medication Instructions Recorded Confirmed Type amlodipine 5 mg tablet 5 mg PO DAILY 02/11/21 01/03/24 History aspirin 81 mg tablet,delayed 81 mg PO DAILY 02/11/21 01/03/24 History release (Adult Low Dose Aspirin) atenolol 50 mg tablet 50 mg PO BEDTIME blood pressure 02/11/21 01/03/24 History calcium carbonate 500 mg calcium 1,000 mg PO DAILY 02/11/21 01/03/24 History (1,250 mg) tablet (Calcium 500) cetirizine 10 mg tablet 10 mg PO DAILY PRN allergies 02/11/21 01/03/24 History omega-3 fatty acids 1,000 mg 2,000 mg PO DAILY 02/11/21 01/03/24 History capsule (Fish Oil Concentrate) spironolactone 25 mg tablet 25 mg PO DAILY blood pressure 02/11/21 01/03/24 History (Aldactone) temazepam 30 mg capsule 30 mg PO BEDTIME PRN Sleep 02/11/21 01/03/24 History vitamin B complex (B 1 tab PO DAILY vitamin 02/11/21 01/03/24 History Complex-Vitamin B12 tablet) warfarin 6 mg tablet 6 mg PO DIRECTED anti-coag 02/11/21 01/03/24 History acetaminophen 500 mg tablet 1,000 mg PO Q6H PRN Blood Pressure 07/01/21 01/03/24 History (Tylenol Extra Strength) atorvastatin 80 mg tablet 80 mg PO BEDTIME 04/20/23 01/03/24 History levothyroxine 125 mcg tablet 125 mcg PO DAILY thyroid 04/20/23 01/03/24 History ipratropium bromide 42 mcg (0.06 2 spray intranasal 3XD nasal 01/03/24 01/03/24 History %) nasal spray Allergies Allergy/AdvReac Type Severity Reaction Status Date / Time adhesive tape Allergy Intermediate Rash Verified 11/21/23 11:41 penicillin G Allergy Intermediate Rash Verified 11/21/23 11:41 Sulfa (Sulfonamide Allergy Intermediate Rash Verified 11/21/23 11:41 Antibiotics) Review of Systems Review of Systems Narrative: All other systems reviewed with the patient and are negative unless otherwise stated. Exam Vital Signs (past 8 hours): - 01/03/24 08:39 01/03/24 08:40 01/03/24 08:41 Temperature Pulse Rate 75 73 70 Respiratory Rate 23 29 H 20 Blood Pressure 224/104 H Pulse Oximetry 97 97 98 Oxygen Delivery Method Room Air 01/03/24 08:48 01/03/24 08:50 01/03/24 08:50 Temperature 98.0 F Pulse Rate 71 Respiratory Rate 26 H Blood Pressure 194/103 H Pulse Oximetry 97 Oxygen Delivery Method 01/03/24 08:56 01/03/24 08:56 01/03/24 09:00 Temperature Pulse Rate 74 68 Respiratory Rate 31 H 22 Blood Pressure 181/83 H Pulse Oximetry 93 95 Oxygen Delivery Method 01/03/24 09:00 01/03/24 09:05 01/03/24 09:05 Temperature Pulse Rate 63 Respiratory Rate 20 Blood Pressure 141/61 H 148/67 H Pulse Oximetry 93 Oxygen Delivery Method 01/03/24 09:30 01/03/24 09:30 01/03/24 10:00 Temperature Pulse Rate 61 69 Respiratory Rate 17 32 H Blood Pressure 159/77 H Pulse Oximetry 97 98 Oxygen Delivery Method 01/03/24 10:01 01/03/24 10:01 01/03/24 10:03 Temperature Pulse Rate 70 70 Respiratory Rate 25 H 23 Blood Pressure 221/87 H Pulse Oximetry 98 99 Oxygen Delivery Method 01/03/24 10:03 01/03/24 10:15 01/03/24 10:29 Temperature Pulse Rate 71 Respiratory Rate 20 Blood Pressure 208/88 H 200/88 H Pulse Oximetry 98 Oxygen Delivery Method 01/03/24 10:29 01/03/24 10:30 01/03/24 10:30 Temperature Pulse Rate 70 Respiratory Rate 25 H Blood Pressure 217/88 H 206/88 H Pulse Oximetry 98 Oxygen Delivery Method Oxygen Delivery Method Room Air Narrative Exam Narrative: GEN: no acute distress, obese HEENT: moist mucous membranes, PERRL NECK: trachea midline, no JVD CV: regular rate and rhythm, no murmurs, no chest pain to palpation of L chest wall PULM: clear bilaterally ABD: soft, nontender, nondistended, no organomegaly EXT: warm and well perfused with no edema NEURO: awake, alert, oriented, no focal deficits Objective Labs 01/03/24 08:50 01/03/24 08:50 Labs: Laboratory Results - last 24 hr 01/03/24 01/03/24 08:50 10:00 WBC 8.6 RBC 4.68 Hgb 14.0 Hct 41.3 MCV 88.2 MCH 30.0 MCHC 34.0 RDW 15.1 H Plt Count 220 Neut % (Auto) 53.7 Lymph % (Auto) 34.4 [place] % (Auto) 8.5 Eos % (Auto) 2.6 Baso % (Auto) 0.8 Neut # (Auto) 4600 Lymph # (Auto) 2900 [place] # (Auto) 700 Eos # (Auto) 200 Baso # (Auto) 100 PT 26.0 H INR 2.2 H D-Dimer 646 H Sodium 141 Potassium 3.8 Chloride 109 H Carbon Dioxide 26 BUN 22 H Creatinine 1.00 Estimated GFR 56 L BUN/Creatinine Ratio 22.0 Glucose 113 H Calcium 9.8 Total Bilirubin 1.0 AST 34 ALT 33 Alkaline Phosphatase 85 Troponin I < 0.012 < 0.012 Total Protein 7.0 Albumin 3.9 Globulin 3.1 Albumin/Globulin Ratio 1.3 Assessment & Plan Assessment & Plan narrative: # chest pain -presented with left sided chest pain radiating to neck -trops negative x2, repeat in a.m. -echo and nuclear stress ordered -CTA chest to rule out PE or dissection as blood pressure quite high -check lipid and A1c -tele # history of DVT and PE -continue warfarin per pharmacy # hypertensive urgency -BP up to 200 systolic -resume home blood pressure medication -labetalol IV as needed # hypothyroidism -continue Synthroid -check TSH # hyperlipidemia -continue home atorvastatin -check lipid panel Code status is full code. DVT prophylaxis with warfarin. Proxy is daughter Naomi. I have reviewed home meds and used all available resources to reconcile the home meds. Case discussed with ED physician/APC and patient will be admitted to the hospitalist service for further workup and management. This patient will be admitted as observation and will require less than 2 midnights of hospital time to treat chest pain workup.
[2024-01-03 11:53] LABS: Cholesterol 130 mg/dL (140-199); HDL Cholesterol 46 mg/dL (40-60); LDL Cholesterol Calculated 59 mg/dL (<100); Magnesium 1.8 mg/dL (1.6-2.3); Triglycerides 125 mg/dL (35-150)
--- NOTE | 2024-01-03 12:10 | PC.NURSE ---
Pt to room 206 via [facility] and now in bed. Pt oriented to her room, call light, bed controls, and tv controls. Tele on and being monitored. Bed alarm on and running. Pt has been down to get her CT and Nuclear Medicine study.
[2024-01-03 12:25] LABS: TSH w/ Reflex to FT4 0.19 uIU/mL (0.47-4.68)
[2024-01-03 12:43] LABS: Hemoglobin A1C% w Est Avg Glu 5.4 % (4.0-6.0)
[2024-01-03 12:56] LABS: Free T4, Direct Thyroxine 1.91 ng/dL (0.78-2.19)
[2024-01-03] MEDS: ACETAMINOPHEN 325 MG TABLET 650 MG PO ×2 (14:05→21:30)
[2024-01-03] MEDS: NYSTATIN POWDER 15GM 1 APPLIC TOP ×2 (14:05→23:05)
[2024-01-03] MEDS: WARFARIN 5 MG, WARFARIN 1 MG 6 MG PO (16:51)
[2024-01-03] MEDS: atenoloL 50 MG TABLET PO (21:29)
[2024-01-03] MEDS: ATORVASTATIN 20 MG TABLET 80 MG PO (21:29)
[2024-01-03] MEDS: TEMAZEPAM 15 MG CAPSULE 30 MG PO (23:05)
[2024-01-04 00:20] VITALS: BP 139/77; PULSE 96; RESP 17; TEMP 36.8; O2SAT 95
--- NOTE | 2024-01-04 00:36 | PC.NURSE ---
Patient is alert and oriented. Breath sounds CTA with RA st of 97%. HRR w/telemetry reading of SR w/1st degree AVB. Does have 1/10 left chest discomfort which increases in intensity when she inhales. Denied nausea. BT present and abdomen is soft; reports she has fecal incontinence. Denied any dysuria or urinary symptoms except does leak urine so is wearing a pad. Is able to turn herself in bed. Up to bathroom with 1 assist; is unsteady but reports no falls because I'm careful. Understands she needs to call for assistance when needing to get out of bed but bed alarm initiated per family request. Has chronic right arm and neck pain related to history of cervical surgery which caused nerve damage; medicated with tylenol with resolution of pain. Was wearing bilateral calf SCD's but requested they be removed to enable her to sleep; was medicated with Temazepam per her request.
[2024-01-04 05:30] VITALS: BP 135/65; PULSE 64; RESP 16; TEMP 35.9; O2SAT 97
[2024-01-04] MEDS: LEVOTHYROXINE 100 MCG TABLET PO (05:47)
[2024-01-04] MEDS: PANTOPRAZOLE DR 20 MG TABLET PO (05:47)
[2024-01-04 06:27] LABS: Add Manual Diff / Slide Review NO; Basophils Absolute Auto 0 /uL (0-100); Basophils Percent Auto 0.7 % (0-2); Eosinophils Absolute Auto 200 /uL (0-450); Hematocrit 39.7 % (36-46); Hemoglobin 13.6 g/dL (12.0-16.0); INR 2.2 (0.9-1.3); Lymphocytes Absolute Auto 2300 /uL (1100-4500); Lymphocytes Percent Auto 40.5 % (25-40); Mean Corpuscular HGB Conc 34.3 % (30-36); Mean Corpuscular Hemoglobin 30.2 PG (26-34); Monocytes Absolute Auto 500 /uL (0-900); Monocytes Percent Auto 8.7 % (3-14); Neutrophils Absolute Auto 2700 /uL (1500-7000); Neutrophils Percent Auto 46.1 % (50-75); Platelet Count 188 X10^3/uL (150-400); Prothrombin Time 25.9 SECONDS (9.4-12.5); Red Blood Cell Count 4.51 X10^6/uL (4.0-5.2); Red Cell Distribution Width 14.8 % (11.6-14.8); White Blood Cell Count 5.8 X10^3/uL (4.5-11.0)
[2024-01-04 06:32] LABS: BUN Creatinine Ratio 24.4 (6-22); Blood Urea Nitrogen 22 mg/dL (7-17); Calcium 9.2 mg/dL (8.4-10.2); Carbon Dioxide 27 mmol/L (22-32); Chloride 112 mmol/L (98-107); Estimated Glomerular Filt Rate > 60 mL/min (>60); Glucose 98 mg/dL (80-110); HEMOLYSIS < 15 (0-50); Potassium 3.9 mmol/L (3.4-5.1); Sodium 142 mmol/L (137-145)
[2024-01-04 06:44] LABS: Troponin I < 0.012 ng/mL (0.01-0.034)
[2024-01-04 08:00] VITALS: BP 114/60; PULSE 69; RESP 16; TEMP 36.2; O2SAT 98
[2024-01-04] MEDS: SODIUM CHLORIDE 0.9% FLUSH 10 ML IV (08:57)
[2024-01-04] MEDS: ASPIRIN EC 81 MG TABLET PO (09:02)
[2024-01-04] MEDS: AMLODIPINE 5 MG TABLET PO (09:02)
[2024-01-04] MEDS: SPIRONOLACTONE 25 MG TABLET PO (09:02)
[2024-01-04] MEDS: SENNOSIDES 8.6 MG TABLET PO (09:02)
[2024-01-04] MEDS: ACETAMINOPHEN 325 MG TABLET 650 MG PO (09:03)
[2024-01-04 12:00] VITALS: BP 113/57; PULSE 62; RESP 16; TEMP 36.6; O2SAT 96
--- NOTE | 2024-01-04 12:05 | PC.NURSE ---
Addendum entered by Graham Barrett R.N. 01/04/24 12:40: Back in room and on tele approx 1230 Original Note: Day shift: Off unit for stress text at approx 1130.
--- NOTE | 2024-01-04 13:44 | CM.DANOTE ---
Initial DCP Assessment Visit Note Reviewed EMR and team rounds for pt's medical status and updates. Met with pt/dtr at bedside to introduce self and role. Pt was found dressed and waiting on results from her stress test and ECHO. Her dtr will transport her home once her results are reviewed and she is medically cleared for d/c. Payor: Medicare PCP: Dr. Crowell Pt is a 83 year-old F who presented to the ED last evening after having woken in the middle of the night with sudden onset, sharp left-sided chest pain. She was not found to be short of breath, and was otherwise in her normal state with no other symptoms. She was placed in OBS bed for further cardiac tests and evaluation. She denies any home resources or additional support at this time, DCP will continue to monitor should any further needs evolve prior to discharge. Discharge Planning/Care Management CM Discharge Assessment Start: 01/04/24 13:39 Freq: Status: Active Protocol: Document 01/04/24 13:39 DPL (Rec: 01/04/24 13:44 DPL [id number]) Discharge Planning Assessment Assigned Services Advisor RENATA Fraire Advance Directives? No History Provided By Patient,Family Member,Medical Record Has Patient been admitted in last 30 No days? Prior Living Arrangements House Household Members children Type of transporation used prior to Drives own vehicle admit Independent with ADL's Yes Is patient alert and oriented? Yes Comment N/A Caregiver for Another No Comment N/A Comment None Comment No identified d/c needs during this admission. Barriers to Discharge No Discharge Plan Home Referrals Initiated None needed Whiteboard Updated in Patient Room with Yes name and ext. # of Services Advisor Review Status In Process Please Provide Date Initial DC 01/04/24 Assessment Was Performed
--- NOTE | 2024-01-04 16:26 | P.DS_ITS ---
History of Present Illness History of Present Illness Chief complaint: chest pain Narrative: Natalia Amaya is an 83yo F with PMH of DVT/PE on warfarin, hypothyroidism, HTN, HLD, obesity, and cervical fusion who presents with CP. Patient woke up with L- sided chest pain which radiated to jaw. The pain improved with NG in the ED. EKG without ST changes and troponins normal x2. Admitted for chest pain workup with stress and echo. Discharge Providers Provider Date of admission: 01/03/24 09:50 Discharge Date: 01/04/24 Primary care physician: Kemar Crowell DO Discharge provider: Marko Barillas DO Summary Hospital Course Discharge Diagnosis: # chest pain -presented with left sided chest pain radiating to neck -trops negative x2, repeat in a.m. -echo and nuclear stress ordered, both were reassuring -echo with EF 60-65%, no WMA -CTA chest to rule out PE or dissection as blood pressure quite high-no evidence of PE or dissection -LDL 59 and A1c 5.4% -tele # history of DVT and PE -continue warfarin per pharmacy # hypertensive urgency -BP up to 200 systolic -resume home blood pressure medication -labetalol IV as needed # hypothyroidism -continue Synthroid -check TSH # hyperlipidemia -continue home atorvastatin -LDL at goal Hospital Course: Admitted for chest pain and had normal echo, nuclear stress test, EKG and troponins. May have been due to hypertensive urgency which is why nitro helped the pain as it lowered the BP. Should f/up with PCP to discuss HTN med adjustements. Exam Vital Signs (past 8 hours): - 01/04/24 12:00 Temperature 97.8 F Pulse Rate 62 Respiratory Rate 16 Blood Pressure 113/57 L Pulse Oximetry 96 Oxygen Flow Rate 0 Oxygen Delivery Method Room Air Oxygen Flow Rate 0 Narrative Exam Narrative: GEN: no acute distress, obese HEENT: moist mucous membranes, PERRL NECK: trachea midline, no JVD CV: regular rate and rhythm, no murmurs, no chest pain to palpation of L chest wall PULM: clear bilaterally ABD: soft, nontender, nondistended, no organomegaly EXT: warm and well perfused with no edema NEURO: awake, alert, oriented, no focal deficits Objective Labs 01/04/24 06:05 01/04/24 06:05 Labs: Laboratory Results - last 24 hr 01/04/24 06:05 WBC 5.8 RBC 4.51 Hgb 13.6 Hct 39.7 MCV 88.0 MCH 30.2 MCHC 34.3 RDW 14.8 Plt Count 188 Neut % (Auto) 46.1 L Lymph % (Auto) 40.5 H [place] % (Auto) 8.7 Eos % (Auto) 4.0 Baso % (Auto) 0.7 Neut # (Auto) 2700 Lymph # (Auto) 2300 [place] # (Auto) 500 Eos # (Auto) 200 Baso # (Auto) 0 PT 25.9 H INR 2.2 H Sodium 142 Potassium 3.9 Chloride 112 H Carbon Dioxide 27 BUN 22 H Creatinine 0.90 Estimated GFR > 60 BUN/Creatinine Ratio 24.4 H Glucose 98 Calcium 9.2 Troponin I < 0.012 PFSH Medical History Chronic anticoagulation Morbid obesity due to excess calories Cervical radiculopathy 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 Your chest pain was therefore likely non-cardiac. Discharge orders & Medications Prescriptions: Continued ipratropium bromide 42 mcg (0.06 %) spray,non-aerosol 2 spray intranasal 3XD spironolactone [Aldactone] 25 mg tablet 25 mg PO DAILY amlodipine 5 mg tablet 5 mg PO DAILY atenolol 50 mg tablet 50 mg PO BEDTIME cetirizine 10 mg tablet 10 mg PO DAILY PRN (Reason: allergies) temazepam 30 mg capsule 30 mg PO BEDTIME PRN (Reason: Sleep) warfarin 6 mg tablet 6 mg PO DIRECTED calcium carbonate [Calcium 500] 500 mg calcium (1,250 mg) tablet 1,000 mg PO DAILY aspirin [Adult Low Dose Aspirin] 81 mg tablet,delayed release (DR/EC) 81 mg PO DAILY omega-3 fatty acids [Fish Oil Concentrate] 1,000 mg capsule 2,000 mg PO DAILY vitamin B complex [B Complex-Vitamin B12] Tablet 1 tab PO DAILY levothyroxine 125 mcg tablet 125 mcg PO DAILY Patient Comments: TAKE 1 TABLET BY MOUTH ONCE DAILY atorvastatin 80 mg tablet 80 mg PO BEDTIME Patient Comments: TAKE 1 TABLET BY MOUTH ONCE DAILY acetaminophen [Tylenol Extra Strength] 500 mg tablet 1,000 mg PO Q6H PRN (Reason: Blood Pressure) Follow up/Referrals: Kemar Crowell DO [Primary Care Provider] - 2 Weeks Visit Report/Discharge Packet Instructions: DI for Atypical Chest Pain, DI for Chest Pain Stand Alone Forms: Patient Portal/API, Stroke Signs & Symptoms Discharge Data Primary Care Provider: Kemar Crowell Attending Provider: Marko Barillas Admit Date/Time: 01/03/24 09:50
--- NOTE | 2024-01-04 17:23 | PC.NURSE ---
Day shift: Paperwork signed and all questions answered. Pt has all personal belongings. No new MD scripts. Left unit via at approx 1720. Friend is driving Pt home.
== END 2024-01-04 17:25 | disposition home or self-care (01) ==
LOC: ED 09:20 → AC 09:51
PROVIDERS: Admitting Provider Student in an Organized Health Care Education/Training Program; Emergency Provider Emergency Medicine; PCP Family Medicine; Referring Provider Emergency Medicine; Visit Provider Student in an Organized Health Care Education/Training Program
DX: R07.9 Chest pain, unspecified (principal); I16.0 Hypertensive urgency; Z86.711 Personal history of pulmonary embolism; Z79.01 Long term (current) use of anticoagulants; I10 Essential (primary) hypertension; E66.01 Morbid (severe) obesity due to excess calories
CPT/HCPCS: 36415; 71045; 71275; 78452; 80048; 80053; 80061; 83036; 83735; 84439; 84443; 84484; 85025; 85379; 85610; 93005; 93010; 93017; 93306; 99283; 99284; G0378; A9502; J2785; Q9967

== ENCOUNTER → 2024-02-15 08:52 | Outpatient (CLI) | payer MEDICARE, OTHER, SELFPAY ==
[2024-01-03 11:24] VITALS: BMI 37.4
--- NOTE | 2024-02-15 08:55 | DI.RAD.S_ITS ---
PROCEDURE: FL BARIUM SWALLOW W SPEECH INDICATIONS: Dysphagia, pharyngeal phase COMPARISON: None. TECHNIQUE: Examination was conducted in conjunction with speech pathology per standard protocol. In the lateral projection, filming was performed of the patient swallowing. AP projection filming may also be performed with patient swallowing. COMPARISON: FINDINGS: Function: The oral preparatory phase appears normal, with proper containment. The subsequent oral propulsive phase, pharyngeal phase, and esophageal phase of swallowing also appear normal with all proffered substances. No laryngotracheal penetration or aspiration. No pathologic vallecular pooling. Morphology: ACDF hardware partially visualized. Large amount of surgical clips project over the anterior neck. Abnormality of the proximal esophagus/pharynx contour is noted on these limited views; this is most likely related to patient's extensive surgical history.No cricopharyngeal bar is identified. No cervical esophageal webs. No Zenker's diverticulum. IMPRESSION: See speech pathologist's notes for detailed discussion. Abnormality of the proximal esophagus and pharynx contour noted likely relating to extensive prior surgical history; if indicated, laryngoscopy/endoscopy provide additional diagnostic benefit. Dictated by: Dewayne Pierson M.D. on 02/15/2024 at 17:23 Approved by: Dewayne Pierson M.D. on 02/15/2024 at 17:26
--- NOTE | 2024-02-15 12:18 | ST-OP ANOTE ---
Physical, Occupational & Speech Therapy At [facility] Speech Therapy Note Pt was scheduled for MBSS today; however upon clarification with PCP, MBSS was cancelled as it was not correct test. Informed patient.
--- NOTE | 2024-02-15 15:42 | ST.SWALLOW ---
Visit Care Team Role Provider Type Kemar Crowell DO Primary Care Provider Non-Staff Specialty: Family Practice Address: [address] [place] [address], [id number] Email: Kadeem Mackenzie MD Attending Provider Non-Staff Referring Provider Specialty: Internal Medicine Address: [address] [place] [address], [id number] Email: Modified Barium Swallow Study [employer] Modified Barium Swallow Study Start: 02/15/24 11:07 Freq: Status: Active Protocol: Document 02/15/24 12:23 LNK (Rec: 02/15/24 12:44 LNK [id number]) Modified Barium Swallow Study Total Time Visit Start Time 09:00 Visit Stop Time 09:30 Total Visit Minutes 30 Referral Referring Physician Kadeem Mackenzie MD Setting Setting Outpatient Care Patient Information Identification Type Name,Date of Patient History Pt seen for MBSS re: c/o foods and pills sticking in her throat (points to larynx). She described her sensation as occurring above her larynx. Pt reports that she experiences this at least once /day. She noted that frequently she will feel foods/pills sticking and will need to cough bolus back into her mouth and re-swallow the bolus. Pt has a PMH of thyroid surgery, a uvulopalatopharyngoplasty ( UPPP) and ACDF. ACDF was performed in , 2022, per pt. She stated that after the surgery, she had difficulty with swallowing pills, needing to use a carrier (applesauce, etc.). She has had no complications following the UPPP. Subjective Observations Pt was seated in the fluoroscopy chair with directions and procedures described for her. She indicated she understood and agreed to proceed. Patient Positioning Position View Lat-A/P Imaging Lateral View Textures Administered Trials Presented Thin Liquid via Spoon (IDDSI 0 ),Thin Liquid via Cup (IDDSI 0 ),Extremely Thick Liquid via Spoon (IDDSI 4),Regular (IDDSI 7) Barium Tablet Yes The IDDSI Framework Protocol: IDDSI.1 Oral Impairment Source: The Modified Barium Swallow Impairment Profile (MBSImP??) Lip Closure No labial escape Tongue Control During Bolus Hold Cohesive bolus between tongue to palatal seal Bolus Preparation/Mastication Disorganized chewing/mashing with solid pieces of bolus unchewed Bolus Transport/Lingual Motion Brisk tongue motion Oral Residue Residue collection on oral structures Location Tongue Initiation of Pharyngeal Swallow Bolus head at pyriforms Additional Oral Impairment Observations OME was observed to be WNL. Dentition was in good hygeine. All but one molar were missing. Pt demonstrated an anterior chewing pattern with the cookie trial. Pieces of cookie were noted in the bolus when swallow trigger initiated. DKS was observed to be WNL. Pharyngeal Impairment Source: The Modified Barium Swallow Impairment Profile (MBSImP??) Soft Palate Elevation No bolus between soft palate & pharyngeal wall Laryngeal Elevation Part.sup.move.thyroid cart/ part.approx.arytenoids to epiglot.petiole Anterior Hyoid Excursion No anterior movement Epiglottic Movement Partial inversion Laryngeal Vestibular Closure Complete; no air/contrast in laryngeal vestibule Pharyngeal Stripping Wave Absent Pharyngoesophageal Segment Opening Partial distention/partial duration; partial obstruction of flow Tongue Base Retraction Narrow column of contrast/air betwn tongue base & post. pharyngeal wall Pharyngeal Residue Collection of residue within/ on pharyngeal structures Location Diffuse (>3 areas) Additional Pharyngeal Impairment Weakness observed with tongue Observations base retraction, hyolaryngeal elevation and epiglottic inversion. The erpiglottis did not fully invert, but rather was horizontal with the epiglottic tip curled upward against the posterior pharyngeal wall. Contrast residue pooling was observed throughout the pharyngeal cavity. No stripping of the posterior pharyngeal wall observed. This greatly reduced her ability to move the bolus from the base of tongue toward the epiglottis. The pt was able to swallow liquids without difficulty. With solids, significant residue was observed in the valeculla. Minimal stripping of the posterior pharyngeal wall greatly reduced her ability to move the bolus from the base of tongue toward the epiglottis. At one point, the pt needed to cough up the bolus of the cookie and re-swallow. When the pt tried to swallow the the barium tablet (lateral view), it became lodeged in the valeculla. Additional swallows of waterwere needed to clear the tablet. The extension and duration of the PES opening was reduced secondary to placement of the cervical hardware. The hardware also appeared to alter the shape of the upper esophagus, pushing the esophagus forward (curved shape). This also contributes to the pt's c/o inability to swallow solids or pills. Additional liquid swallows are necessary to push the lodged bolus into the esophagus or the pt feels a need to regurgitate the bolus. No tracheal aspiration or laryngeal penetration was observed across trials. A/P View Textures Administered Trials Presented Thin Liquid via Cup (IDDSI 0) The IDDSI Framework Protocol: IDDSI.1 A/P View Observations Pharyngeal Contraction Complete Esophageal Clearance Upright Position Complete clearance; esophageal coating Vocal Fold Function Good Esophageal Function WFL Additional A-P Observations Viewed in the AP position, liquids were swallowed without difficulty. Again, a second trial with a barium tablet resulted in the tablet getting lodged in the valeculla. Additional swallows of water cleared the tablet. Clinical Impressions Dysphagia Type Pharyngeal Findings Pt presents with pharyngeal dysphagia secondary to reduced overall strength in elevating the hyolaryngeal stuctures. In addition, pharyngeal stripping was not observed. Epiglottic inversion was reduced and resulted in solids and tablets to lodge in the valeculla. The opening extension and duration of the PES was restricted by the cervical hardware. This also displaces the esophagus anteriorly, further complicating the pt's ability to swallow solids and tablets/ pills. It was suggested to the pt that during meals, she should alternate solids with liquid swallows to clear the valeculla. Additionally, with medications, the pt should consider using a carrier (i.e. , applesauce, yogurt, pudding, etc.). Additional swallows of liquids would also be beneficial in clearing the pills. Outpatient swallow therapy for base of tongue strengthening was discussed and recommended. The goal of such therapy would be to increase strength and ultimately elevate the hyolaryngeal structures and improving epiglottal inversion . Rehabilitation Potential Fair Patient Appropriate for Therapy Yes: Base of tongue strengthen exercises Recommendations Diet Liquids Order Thin (IDDSI 0) Diet Order Regular (IDDSI 7) Medication Recommendation As Tolerated,Whole in Carrier, Crushed in Carrier Comments No diet change at this time - recommend alternating liquids and solids Additional Dietary Needs Controlled Sips Aspiration Precautions Recommended Precautions Upright at 90 Degrees, Alternate Liquids/Solids,Small Bites/Sips Treatment Plan Therapy Recommendations Outpatient Speech Therapy,Base of Tongue Exercises Therapy Strategy Recommendations Small Bites and Sips,Alternate Liquids/Solids Placement Recommendation After Discharge Home
== END ==
PROVIDERS: PCP Family Medicine; Referring Provider Internal Medicine; Visit Provider Internal Medicine
DX: R13.13 Dysphagia, pharyngeal phase (principal); Z98.1 Arthrodesis status
CPT/HCPCS: 74230; 92611

== ENCOUNTER → 2024-02-17 15:13 | Outpatient (CLI) | payer MEDICARE, OTHER, SELFPAY ==
[2024-01-03 11:24] VITALS: BMI 37.4
== END ==
PROVIDERS: PCP Family Medicine; Referring Provider Nurse Practitioner; Visit Provider Nurse Practitioner
DX: R06.09 Other forms of dyspnea (principal); J98.8 Other specified respiratory disorders
CPT/HCPCS: 94060; 94726; 94729

== ENCOUNTER 2024-06-05 08:41 | Outpatient (CLI) | payer MEDICARE, OTHER, SELFPAY ==
[2024-01-03 11:24] VITALS: BMI 37.4
[2024-06-05] VITALS (9 sets, daily range): BP systolic 112–149; BP diastolic 62–75; PULSE 62–74; RESP 14–19; TEMP 36.2; O2SAT 95–99
--- NOTE | 2024-06-05 09:04 | PC.NURSE ---
Patient reports that her last dose of ASA 81mg was 8/5 in PM, Coumadin was held starting Tuesday and Lovenox injection started. 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 wanted INR and patient reports her last dose of Lovenox was 8/5 around 0900. no new orders
--- NOTE | 2024-06-05 09:15 | DI.RAD.S_ITS ---
PROCEDURE: PAIN C/T INTERLAMINAR INJECT INDICATIONS: SPINAL STENOSIS COMPARISON: None. FINDINGS: Fluoroscopic spot filming was performed to verify placement of spinal needles at the C7-T1 level(s), as labeled on the films. Appropriate location(s) of the needle tip(s) was confirmed by injection of iodinated contrast. IMPRESSION: C7-T1 epidural injection. Please see operative note for full details. Dictated by: Adan Moore M.D. on 06/05/2024 at 14:00 Approved by: Adan Moore M.D. on 06/05/2024 at 14:00
[2024-06-05] MEDS: MIDAZOLAM 2 MG/2 ML VIAL 1 MG IV (09:23)
[2024-06-05] MEDS: BUPIVACAINE 0.25% (PF) VIAL 2 ML INJ (09:26)
[2024-06-05] MEDS: DEXAMETHASONE 10 MG/ML VIAL 20 MG INJ (09:26)
[2024-06-05] MEDS: iopamidoL 15 ML VIAL 3 ML INJ (09:27)
--- NOTE | 2024-06-05 09:46 | P.PCN_ITS ---
Date/Time/Diagnoses Date of procedure: 06/05/24 Time of procedure: 09:46 Pre-procedure diagnosis: 1. CERVICAL STENOSIS, 2. CERVICAL HNP WITH UPPER EXTREMITY RADICULAR FEATURES Procedure Notes Procedure: FLUORSCOPICALLY GUIDED CONTRAST CONTROLLED INTERLAMINAR EPIDURAL STEROID INJECTION - C7/T1 TL ARLIN Indications: Natalia is referred by Dr. Crowell for treatment of Cervical Stenosis. Physician: Erlin Manrique Total Fluoroscopy time (seconds): 36 Total sedation minutes: 16 Complications: none Procedure in detail & Post-procedure care: DESCRIPTION OF PROCEDURE Following review of allergy and review of potential side effects and co mplications, including, but not necessarily limited to, infection, allergic reaction, local tissue breakdown, temporary as well as permanent nerve injury, stroke, paralysis, and possible , the patient indicated that patient understood and agreed to proceed. An informed consent document was signed by the patient, witnessed by a nurse, and placed in the patient's chart. Additionally, other treatment options including modalities, medications, and physical therapy were reviewed with the patient. After review of previous anaesthesic history and IV conscious sedation the patient was deemed safe to proceed with todays procedure with IV conscious sedation as ASA class II designation. Safety time-out was performed to confirm patient ID, procedure to be performed and site of procedure. IV sedation was accomplished with a combination of 1mg of Versed administered by the RN after DO order, titrated to patient comfort during the course of the procedure while the patient remained responsive to all verbal commands. In the prone position, following sterile prep and drape of the cervical region, the C7/T1 translaminar space was identified fluoroscopically. The skin was anesthetized via a 25-gauge 1.5-inch needle with 1% lidocaine solution. At this point, a 25-gauge, 2.5-inch short bevel spinal needle was atraumatically introduced and advanced under fluoroscopic guidance into epidural space at the C7/T1 translaminar space. Depth was confirmed on lateral view. Radiological data, including multiple fluoroscopic views of the cervical spine, reveal a spinal needle at the C7/T1 translaminar space. Lateral views then show placement of the needle in the epidural space. Subsequent views show contrast material flowing superiorly and inferiorly in the epidural space. DSA fluorosco py with live contrast injection, once again, confirmed no vascular or intrathecal uptake. At this point, using loss of resistance technique with saline and air, the epidural space was entered. Following negative aspiration, injection of approximately 1.5 cc of Isovue-200 with live fluoroscopy in the AP view confirmed epidural flow in the epidural space without vascular or intrathecal uptake observed. Subsequently, a test dose of 1 cc of 1% lidocaine solution was injected and patient was observed for two minutes without signs or symptoms of complications, including abdominal pain, shortness of breath, bilateral upper or lower extremity weakness, nausea and vomiting, prior to steroid injection. At this point, 2cc or 20mg of dexamethasone was then injected without incident. The patient tolerated the procedure well without signs or symptoms of complications prior to transfer to the recovery area for further monitoring The patient was then transferred to the recovery area where they were observed for an appropriate period of time after the injection. The patient reported a VAS score of 8 prior to the procedure and a post-procedure VAS of 1 POST OP INSTRUCTIONS The patient was provided a Pain Log to continue to record the patient's response to the target-specific procedure prior to the patient's follow-up visit with the referring physician. Additionally, specific post-injection care instructions and a contact number to our office were provided if concerns arise regarding possible complications associated with the procedure are suspected.
== END 2024-06-05 09:58 | disposition home or self-care (01) ==
PROVIDERS: PCP Family Medicine; Referring Provider Physical Medicine & Rehabilitation; Visit Provider Physical Medicine & Rehabilitation
DX: M48.02 Spinal stenosis, cervical region (principal); M50.13 Cervical disc disorder with radiculopathy, cervicothoracic region
CPT/HCPCS: 62321; 99152; J1100; J2250; J3490

== ENCOUNTER → 2024-07-09 12:58 | Outpatient (CLI) | payer MEDICARE, OTHER, SELFPAY ==
[2024-01-03 11:24] VITALS: BMI 37.4
--- NOTE | 2024-07-09 12:59 | DI.RAD.S_ITS ---
PROCEDURE: XR CERVICAL SPINE 4V OR 5V INDICATIONS: NECK PAIN TECHNIQUE: 5 views of the cervical spine acquired. COMPARISON: None. FINDINGS: Bones: No fractures or dislocations to the T1 level. Oblique images demonstrate no bony foraminal stenoses. ACDF C4-5. Corpectomy at C6 anterior bridging hardware at C5 through C7. Diffuse facet arthrosis, not significantly changed from prior. Soft tissues: No prevertebral soft tissue swelling. IMPRESSION: ACDF of C4-5 and corpectomy at C6, without hardware complication. Diffuse facet arthrosis. No acute bony abnormality. Dictated by: Terry Lubin M.D. on 07/09/2024 at 14:29 Approved by: Terry Lubin M.D. on 07/09/2024 at 14:31
== END ==
LOC: RAD 12:59
PROVIDERS: PCP Family Medicine; Referring Provider Physical Medicine & Rehabilitation; Visit Provider Physical Medicine & Rehabilitation
DX: M47.22 Other spondylosis with radiculopathy, cervical region (principal); Z98.1 Arthrodesis status
CPT/HCPCS: 72050